=== PATIENT | female | born 1940 | race Caucasian/White ===

== ENCOUNTER 2019-08-22 00:33 | Inpatient (IN) | payer BC, MEDICARE ==
[2019-08-22] MEDS ORDERED: PANTOPRAZOLE 40 MG/10 ML VIAL IVP STA (01:08)
[2019-08-22 01:48] LABS: Basophils # (A) 0.1 k/uL (0-0.2); Basophils % (A) 1 %; Eosinophils % (A) 0 %; HCT 29.5 % (34.0-46.0); HGB 9.3 gm/dL (11.4-16.0); Hypochromasia Slight; Lymphocytes # (A) 1.2 k/uL (1.0-4.8); Lymphocytes % (A) 10 %; MCH 29.9 pg (25.0-35.0); MCHC 31.5 g/dL (31.0-37.0); Mean Platelet Volume 6.7; Monocytes # (A) 0.8 k/uL (0-1.0); Monocytes % (A) 6 %; Neutrophils # (A) 9.8 k/uL (1.3-7.7); Neutrophils % (A) 81 %; Platelet Count 325 k/uL (150-450); RDW 14.7 % (11.5-15.5)
[2019-08-22 01:56] LABS: ALT 20 U/L (9-52); AST 25 U/L (14-36); African American GFR (CKD) >90 (>60 ml/min/1.73 sqM); Albumin 3.4 g/dL (3.5-5.0); Alkaline Phosphatase 68 U/L (38-126); Anion Gap 10 mmol/L; Blood Urea Nitrogen 72 mg/dL (7-17); Calcium 8.8 mg/dL (8.4-10.2); Carbon Dioxide 20 mmol/L (22-30); Chloride 107 mmol/L (98-107); Glucose 136 mg/dL (74-99); Potassium 4.6 mmol/L (3.5-5.1); Sodium 137 mmol/L (137-145); Total Bilirubin 0.5 mg/dL (0.2-1.3); Total Protein 5.7 g/dL (6.3-8.2)
[2019-08-22 02:08] LABS: Lactic Acid, Venous 3.8 mmol/L (0.7-2.0)
[2019-08-22 02:09] LABS: INR 1.2 (<1.2); Prothrombin Time 12.6 sec (9.0-12.0)
[2019-08-22 02:14] LABS: Partial Thromboplastin Time 21.1 sec (22.0-30.0)
[2019-08-22] MEDS: SODIUM CHLORIDE 0.9% 500 ML 500 ML IV SCH ×4 (03:30→04:37)
--- NOTE | 2019-08-22 04:27 | ED ---
Nausea/Vomiting/Diarrhea HPI - General Chief complaint: Nausea/Vomiting/Diarrhea Stated complaint: Vomiting Time Seen by Provider: 08/22/19 00:46 Source: family Mode of arrival: wheelchair Limitations: physical limitation (Delirium versus dementia) - History of Present Illness Initial comments: This patient is a 73-year-old woman who presents to be evaluated for vomiting. Patient states the symptoms had come on in the evening. She describes having m ultiple episodes of coffee-ground emesis. The patient had gone to another hospital, where she was seen and then left AGAINST MEDICAL ADVICE. The patient here also states she is having some epigastric pain. Pain is burning and cramping at times sharp. Currently moderate. She has not noted worsening or relieving factors. History is limited as the patient is difficult to focus on the history and physical. MD complaint: nausea, vomiting, abdominal pain -: hour(s) Description of Vomiting: coffee grounds Associated Abdominal Pain: Yes Location: epigastric Radiation: none Severity: moderate Quality: cramping, other (Burning) Consistency: constant Improves with: none Worsens with: none - Related Data Home Medications Medication Instructions Recorded Confirmed DULoxetine HCL [Cymbalta] 60 mg PO DAILY 01/24/15 02/20/15 Omeprazole 20 mg PO BID 01/24/15 02/20/15 clonazePAM [Clonazepam] 1 mg PO BID 01/24/15 02/20/15 Acetaminophen Tab [Tylenol] 650 mg PO Q6H PRN 02/03/15 02/20/15 Ascorbic Acid [Vitamin C] 500 mg PO DAILY@1200 02/03/15 02/20/15 Aspirin 81 mg PO DAILY 02/03/15 02/20/15 Cholecalciferol [Vitamin D3 (25 2,000 unit PO DAILY@1200 02/03/15 02/20/15 Mcg = 1000 Iu)] Multivit-Min/FA/Lycopene/Lut 1 tab PO DAILY 02/03/15 02/20/15 [Centrum Silver Tablet] Selenium 100 mcg PO DAILY 02/03/15 02/20/15 Vitamin B Complex 1 tab PO DAILY 02/03/15 02/20/15 Cephalexin [Keflex] 500 mg PO Q12HR 02/20/15 02/20/15 Zocor 1 tab PO DAILY 02/20/15 02/20/15 Previous Rx's Medication Instructions Recorded Albuterol Nebulized [Ventolin 2.5 mg INHALATION RT-Q4H PRN #0 02/06/15 Nebulized] nebu Folic Acid 1 mg PO DAILY@1200 tab 02/06/15 Multivitamins, Thera [Multivitamin 1 each PO DAILY@1200 tab 02/06/15 (formulary)] Thiamine [Vitamin B-1] 100 mg PO DAILY@1200 tab 02/06/15 Allergies Allergy/AdvReac Type Severity Reaction Status Date / Time Iodinated Contrast Media Allergy Rash/Hives Verified 02/20/15 07:49 [Iodinated Contrast Media - IV Dye] Review of Systems ROS Statement: Those systems with pertinent positive or pertinent negative responses have been documented in the HPI. ROS Other: All systems not noted in ROS Statement are negative. Limitations: ROS unobtainable due to patients medical condition (Area versus dementia) Constitutional: Denies: fever Respiratory: Denies: cough, dyspnea Cardiovascular: Denies: chest pain, syncope Gastrointestinal: Reports: abdominal pain, nausea, vomiting, hematemesis (Coffee ground emesis). Denies: diarrhea, constipation, hematochezia Genitourinary: Denies: dysuria, hematuria Musculoskeletal: Denies: back pain Skin: Denies: rash Neurological: Denies: headache Past Medical History Past Medical History: Cancer, COPD, Fibromyalgia, GERD/Reflux, Hyperlipidemia, Osteoarthritis (OA) Additional Past Medical History / Comment(s): HX MELANOMA, IBS, DIVERTICULI, History of Any Multi-Drug Resistant Organisms: None Reported Past Surgical History: Appendectomy, Cholecystectomy, Hysterectomy, Orthopedic Surgery Additional Past Surgical History / Comment(s): MELANOMA REMOVED shoulder and left arm with lymph nodes removed. BREAST BX - benign. anterior approach total right hip replacement 02-03-15, right wrist surgery after fracture with pins Past Anesthesia/Blood Transfusion Reactions: Motion Sickness Past Psychological History: Anxiety Smoking Status: Never smoker Past Alcohol Use History: None Reported Past Drug Use History: None Reported - Past Family History Mother Family Medical History: Congestive Heart Failure (CHF) Father Family Medical History: Deep Vein Thrombosis (DVT), Myocardial Infarction ([place]) General Exam Limitations: no limitations General appearance: alert, in distress, other (Patient is having very frequent retching during the exam, not bringing up any emesis.) Head exam: Present: atraumatic, normocephalic Eye exam: Present: normal appearance. Absent: scleral icterus, conjunctival injection ENT exam: Present: mucous membranes dry, other (Mucosal pallor) Neck exam: Present: normal inspection, full ROM Respiratory exam: Present: normal lung sounds bilaterally. Absent: respiratory distress, wheezes, rales, rhonchi, stridor Cardiovascular Exam: Present: regular rate, normal rhythm, systolic murmur (Grade 2/6 systolic ejection murmur). Absent: diastolic murmur, rubs, gallop GI/Abdominal exam: Present: soft. Absent: distended, tenderness, guarding, rebound, rigid, mass Extremities exam: Present: normal inspection, normal capillary refill. Absent: pedal edema, calf tenderness Back exam: Present: normal inspection. Absent: CVA tenderness (R), CVA tenderness (L) Neurological exam: Present: alert Skin exam: Present: warm, dry, intact, normal color. Absent: rash Course Vital Signs 08/22/19 08/22/19 08/22/19 00:40 02:29 04:32 Temperature 97.6 F Pulse Rate 78 93 140 H Respiratory 20 18 18 Rate Blood Pressure 114/67 114/70 116/81 O2 Sat by Pulse 96 99 95 Oximetry 08/22/19 08/22/19 04:46 06:44 Temperature Pulse Rate 148 H 111 H Respiratory 18 18 Rate Blood Pressure 116/81 103/62 O2 Sat by Pulse 97 99 Oximetry - Reevaluation(s) Reevaluation #1: 08/22/19 07:15 Patient's condition after fluid shows that there continues to be a lactic acidos is though somewhat improved. Patient anemia mildly worsened. Patient be admitted for GI bleed. Case discussed with Dr. rico, for [facility] call. Discussed condition in depth and he will see the patient early. 08/22/19 07:32 Case is also discussed with Dr. Sharma who will see the patient, and with Dr. Carmichael, who felt that given a the circumstances of the case she probably would benefit from ICU management for the first day. Procedures - Restraint - Face to Face Restraint Occurrence 1 Patient's Immediate Situation: Endangers self safety Patient's Reaction to the Intervention: Anxious, Bizarre, Suspicious Patient's Medical & Behavioral Condition: Agitated Need to Continue or Terminate Restraint or Seclusion: Continue Face to Face Eval of Restraint Date: 08/22/19 Face to Face Eval of Restraint Time: 07:02 Medical Decision Making - Medical Decision Making Patient 79-year-old woman having multiple rounds of coffee-ground emesis, with multiple lab abnormalities, including lactic acidosis and anemia. The patient has expressed desire to leave AGAINST MEDICAL ADVICE. She is oriented, but she does not display understanding of the condition, and does not display understanding of the possible consequences of leaving, including worsening condition and . I did discuss the patient's care with her son, who initially stated that he felt that she could make her own decision regarding care, however when I explained that I felt that she should stay, the patient's son stated that he felt she should stay for further care. The patient's son did attempt to speak with her, she became angry and on the phone. - Lab Data Result diagrams: 08/22/19 06:42 08/22/19 01:24 Lab Results 08/22/19 08/22/19 08/22/19 Range/Units 01:24 01:24 01:24 WBC 12.0 H (3.8-10.6) k/uL RBC 3.10 L (3.80-5.40) m/uL Hgb 9.3 L (11.4-16.0) gm/dL Hct 29.5 L (34.0-46.0) % MCV 95.0 (80.0-100.0) fL MCH 29.9 (25.0-35.0) pg MCHC 31.5 (31.0-37.0) g/dL RDW 14.7 (11.5-15.5) % Plt Count 325 (150-450) k/uL Neutrophils % 81 % Lymphocytes % 10 % Monocytes % 6 % Eosinophils % 0 % Basophils % 1 % Neutrophils # 9.8 H (1.3-7.7) k/uL Lymphocytes # 1.2 (1.0-4.8) k/uL Monocytes # 0.8 (0-1.0) k/uL Eosinophils # 0.0 (0-0.7) k/uL Basophils # 0.1 (0-0.2) k/uL Hypochromasia Slight PT (9.0-12.0) sec INR (<1.2) APTT (22.0-30.0) sec Sodium 137 (137-145) mmol/L Potassium 4.6 (3.5-5.1) mmol/L Chloride 107 (98-107) mmol/L Carbon Dioxide 20 L (22-30) mmol/L Anion Gap 10 mmol/L BUN 72 H (7-17) mg/dL Creatinine 0.64 (0.52-1.04) mg/dL Est GFR (CKD-EPI)AfAm >90 (>60 ml/min/1.73 sqM) Est GFR (CKD-EPI)NonAf 86 (>60 ml/min/1.73 sqM) Glucose 136 H (74-99) mg/dL Lactic Ac Sepsis Rflx Plasma Lactic Acid Devon 3.8 H* (0.7-2.0) mmol/L Calcium 8.8 (8.4-10.2) mg/dL Total Bilirubin 0.5 (0.2-1.3) mg/dL AST 25 (14-36) U/L ALT 20 (9-52) U/L Alkaline Phosphatase 68 (38-126) U/L Ammonia 11 (<30) umol/L Troponin I (0.000-0.034) ng/mL Total Protein 5.7 L (6.3-8.2) g/dL Albumin 3.4 L (3.5-5.0) g/dL Lipase 55 (23-300) U/L Urine Color Urine Appearance (Clear) Urine pH (5.0-8.0) Ur Specific [place] (1.001-1.035) Urine Protein (Negative) Urine Glucose (UA) (Negative) Urine Ketones (Negative) Urine Blood (Negative) Urine Nitrite (Negative) Urine Bilirubin (Negative) Urine Urobilinogen (<2.0) mg/dL Ur Leukocyte Esterase (Negative) Gastric Occult Blood (Negative) Blood Type Blood Type Recheck Bld Type Recheck Status Antibody Screen Spec Expiration Date 08/22/19 08/22/19 08/22/19 Range/Units 01:24 01:24 01:24 WBC (3.8-10.6) k/uL RBC (3.80-5.40) m/uL Hgb (11.4-16.0) gm/dL Hct (34.0-46.0) % MCV (80.0-100.0) fL MCH (25.0-35.0) pg MCHC (31.0-37.0) g/dL RDW (11.5-15.5) % Plt Count (150-450) k/uL Neutrophils % % Lymphocytes % % Monocytes % % Eosinophils % % Basophils % % Neutrophils # (1.3-7.7) k/uL Lymphocytes # (1.0-4.8) k/uL Monocytes # (0-1.0) k/uL Eosinophils # (0-0.7) k/uL Basophils # (0-0.2) k/uL Hypochromasia PT 12.6 H (9.0-12.0) sec INR 1.2 H (<1.2) APTT 21.1 L (22.0-30.0) sec Sodium (137-145) mmol/L Potassium (3.5-5.1) mmol/L Chloride (98-107) mmol/L Carbon Dioxide (22-30) mmol/L Anion Gap mmol/L BUN (7-17) mg/dL Creatinine (0.52-1.04) mg/dL Est GFR (CKD-EPI)AfAm (>60 ml/min/1.73 sqM) Est GFR (CKD-EPI)NonAf (>60 ml/min/1.73 sqM) Glucose (74-99) mg/dL Lactic Ac Sepsis Rflx Plasma Lactic Acid Devon (0.7-2.0) mmol/L Calcium (8.4-10.2) mg/dL Total Bilirubin (0.2-1.3) mg/dL AST (14-36) U/L ALT (9-52) U/L Alkaline Phosphatase (38-126) U/L Ammonia (<30) umol/L Troponin I 0.029 (0.000-0.034) ng/mL Total Protein (6.3-8.2) g/dL Albumin (3.5-5.0) g/dL Lipase (23-300) U/L Urine Color Urine Appearance (Clear) Urine pH (5.0-8.0) Ur Specific [place] (1.001-1.035) Urine Protein (Negative) Urine Glucose (UA) (Negative) Urine Ketones (Negative) Urine Blood (Negative) Urine Nitrite (Negative) Urine Bilirubin (Negative) Urine Urobilinogen (<2.0) mg/dL Ur Leukocyte Esterase (Negative) Gastric Occult Blood (Negative) Blood Type A Positive Blood Type Recheck A Pos Bld Type Recheck Status No Antibody Screen NEGATIVE Spec Expiration Date 08/25/2019232308/22/19 08/22/19 08/22/19 Range/Units 01:26 02:08 04:24 WBC (3.8-10.6) k/uL RBC (3.80-5.40) m/uL Hgb (11.4-16.0) gm/dL Hct (34.0-46.0) % MCV (80.0-100.0) fL MCH (25.0-35.0) pg MCHC (31.0-37.0) g/dL RDW (11.5-15.5) % Plt Count (150-450) k/uL Neutrophils % % Lymphocytes % % Monocytes % % Eosinophils % % Basophils % % Neutrophils # (1.3-7.7) k/uL Lymphocytes # (1.0-4.8) k/uL Monocytes # (0-1.0) k/uL Eosinophils # (0-0.7) k/uL Basophils # (0-0.2) k/uL Hypochromasia PT (9.0-12.0) sec INR (<1.2) APTT (22.0-30.0) sec Sodium (137-145) mmol/L Potassium (3.5-5.1) mmol/L Chloride (98-107) mmol/L Carbon Dioxide (22-30) mmol/L Anion Gap mmol/L BUN (7-17) mg/dL Creatinine (0.52-1.04) mg/dL Est GFR (CKD-EPI)AfAm (>60 ml/min/1.73 sqM) Est GFR (CKD-EPI)NonAf (>60 ml/min/1.73 sqM) Glucose (74-99) mg/dL Lactic Ac Sepsis Rflx Y Plasma Lactic Acid Devon (0.7-2.0) mmol/L Calcium (8.4-10.2) mg/dL Total Bilirubin (0.2-1.3) mg/dL AST (14-36) U/L ALT (9-52) U/L Alkaline Phosphatase (38-126) U/L Ammonia (<30) umol/L Troponin I (0.000-0.034) ng/mL Total Protein (6.3-8.2) g/dL Albumin (3.5-5.0) g/dL Lipase (23-300) U/L Urine Color Yellow Urine Appearance Clear (Clear) Urine pH 5.5 (5.0-8.0) Ur Specific [place] 1.024 (1.001-1.035) Urine Protein Negative (Negative) Urine Glucose (UA) Negative (Negative) Urine Ketones 1+ H (Negative) Urine Blood Negative (Negative) Urine Nitrite Negative (Negative) Urine Bilirubin Negative (Negative) Urine Urobilinogen <2.0 (<2.0) mg/dL Ur Leukocyte Esterase Negative (Negative) Gastric Occult Blood Positive (Negative) Blood Type Blood Type Recheck Bld Type Recheck Status Antibody Screen Spec Expiration Date 08/22/19 08/22/19 Range/Units 06:42 06:42 WBC 12.4 H (3.8-10.6) k/uL RBC 2.59 L (3.80-5.40) m/uL Hgb 8.0 L (11.4-16.0) gm/dL Hct 24.0 L (34.0-46.0) % MCV 92.6 (80.0-100.0) fL MCH 30.7 (25.0-35.0) pg MCHC 33.2 (31.0-37.0) g/dL RDW 14.8 (11.5-15.5) % Plt Count 319 (150-450) k/uL Neutrophils % % Lymphocytes % % Monocytes % % Eosinophils % % Basophils % % Neutrophils # (1.3-7.7) k/uL Lymphocytes # (1.0-4.8) k/uL Monocytes # (0-1.0) k/uL Eosinophils # (0-0.7) k/uL Basophils # (0-0.2) k/uL Hypochromasia PT (9.0-12.0) sec INR (<1.2) APTT (22.0-30.0) sec Sodium (137-145) mmol/L Potassium (3.5-5.1) mmol/L Chloride (98-107) mmol/L Carbon Dioxide (22-30) mmol/L Anion Gap mmol/L BUN (7-17) mg/dL Creatinine (0.52-1.04) mg/dL Est GFR (CKD-EPI)AfAm (>60 ml/min/1.73 sqM) Est GFR (CKD-EPI)NonAf (>60 ml/min/1.73 sqM) Glucose (74-99) mg/dL Lactic Ac Sepsis Rflx Plasma Lactic Acid Devon 3.3 H* (0.7-2.0) mmol/L Calcium (8.4-10.2) mg/dL Total Bilirubin (0.2-1.3) mg/dL AST (14-36) U/L ALT (9-52) U/L Alkaline Phosphatase (38-126) U/L Ammonia (<30) umol/L Troponin I (0.000-0.034) ng/mL Total Protein (6.3-8.2) g/dL Albumin (3.5-5.0) g/dL Lipase (23-300) U/L Urine Color Urine Appearance (Clear) Urine pH (5.0-8.0) Ur Specific [place] (1.001-1.035) Urine Protein (Negative) Urine Glucose (UA) (Negative) Urine Ketones (Negative) Urine Blood (Negative) Urine Nitrite (Negative) Urine Bilirubin (Negative) Urine Urobilinogen (<2.0) mg/dL Ur Leukocyte Esterase (Negative) Gastric Occult Blood (Negative) Blood Type Blood Type Recheck Bld Type Recheck Status Antibody Screen Spec Expiration Date Critical Care Time Critical Care Time: Yes (40 minutes) Disposition Clinical Impression: GI bleeding, Anemia, Lactic acidosis Disposition: ADMITTED IP TO THIS [facility] Condition: Serious Is patient prescribed a controlled substance at d/c from ED?: No Referrals: None,Stated [Primary Care Provider] - 1-2 days
[2019-08-22 04:32] LABS: Appearance,Urine Clear (Clear); Bilirubin,Urine Negative (Negative); Blood,Urine Negative (Negative); Color,Urine Yellow; Glucose,Urine (UA) Negative (Negative); Ketones,Urine 1+ (Negative); Leukocyte Esterase,Urine Negative (Negative); Nitrite,Urine Negative (Negative); PH, Urine 5.5 (5.0-8.0); Protein,Urine Negative (Negative); Specific Gravity,Urine 1.024 (1.001-1.035); Urobilinogen,Urine <2.0 mg/dL (<2.0)
[2019-08-22] MEDS ORDERED: LORazepam 2 MG/ML INJ IV STA ×3 (04:47→07:17)
[2019-08-22] MEDS ORDERED: HALOPERIDOL LACTATE 5 MG/ML 1 ML VIAL IM STA (06:14)
[2019-08-22 06:49] LABS: MCH 30.7 pg (25.0-35.0); MCHC 33.2 g/dL (31.0-37.0); MCV 92.6 fL (80.0-100.0); Mean Platelet Volume 6.3; Platelet Count 319 k/uL (150-450); RBC 2.59 m/uL (3.80-5.40); RDW 14.8 % (11.5-15.5); WBC 12.4 k/uL (3.8-10.6)
[2019-08-22] MEDS ORDERED: NALOXONE 0.4 MG/ML 1 ML VIAL IV PRN (07:22)
[2019-08-22] MEDS: SODIUM CHLORIDE 0.9% 1,000 ML IV SCH ×3 (08:00→22:29)
[2019-08-22 09:04] LABS: Glucose,Whole Blood 109 mg/dL (75-99)
[2019-08-22] MEDS ORDERED: HYDROmorphone 1 MG/ML 1 ML SYRINGE IVP PRN ×2 (09:13→09:14)
[2019-08-22] MEDS ORDERED: SODIUM CHLORIDE 0.9% 1,000 ML IV ONE (09:17)
[2019-08-22] MEDS: HALOPERIDOL LACTATE 5 MG/ML 1 ML VIAL IM PRN ×2 (09:20→19:40)
[2019-08-22] MEDS ORDERED: HYDROmorphone 1 MG/ML 1 ML SYRINGE ONE (09:21)
--- NOTE | 2019-08-22 09:43 | XR ---
EXAMINATION TYPE: XR chest 1V portable DATE OF EXAM: 08/22/2019 COMPARISON: 02/04/2015 HISTORY: Shortness of breath TECHNIQUE: Single frontal view of the chest is obtained. FINDINGS: And new very mild cephalization is seen. The previously seen nodular opacities in the righ t lower lung are somewhat obscured by thee pulmonary vessels en face. The smaller nodule at the right lung base appears similar to the prior chest x-ray 2014. There is shifting of the mediastinum to the right secondary to patient positioning. Central vascular engorgement is noted. No sizable pneumothor ax. Diffuse osseous demineralization. Postsurgical changes of the left breast. IMPRESSION: New mild cephalization. Consider cardiogenic or noncardiogenic fluid overload.
[2019-08-22] MEDS: GABAPENTIN 100 MG CAP PO SCH ×2 (10:03→20:56)
[2019-08-22] MEDS: PANTOPRAZOLE 40 MG/10 ML VIAL IV SCH (10:06)
--- NOTE | 2019-08-22 10:43 | CT ---
EXAMINATION TYPE: CT brain wo con DATE OF EXAM: 08/22/2019 COMPARISON: Prior CT 01/18/2012 HISTORY: AMS CT DLP: 1129.4 mGycm Automated exposure control for dose reduction was used. CT brain using departmental protocol performe d FINDINGS: Cortical atrophy is present. There is no hemorrhage or hydrocephalus. White matter low-attenuation is again seen. No hemorrhage or hydrocephalus. Orbits show symmetric appearance. Calvarium is intact. P aranasal sinuses and mastoid air cells as visualized are normal. IMPRESSION: NO ACUTE ABNORMALITY. AGE-RELATED CHANGES OF ATROPHY AND PROBABLE CHRONIC SMALL VESSEL ISCHEMIA.
[2019-08-22 10:53] LABS: Ammonia <9 umol/L (<30)
--- NOTE | 2019-08-22 10:53 | P.CNPUL ---
History of Present Illness Consult date: 08/22/19 Requesting physician: Alex E Perri Reason for consult: other (Critical care management) Chief complaint: Coffee-ground emesis History of present illness: This is a 79-year-old female patient with a history of fibromyalgia, previous tobacco dependence, chronic obstructive pulmonary disease, gastroesophageal reflux disease, hyperlipidemia, degenerative joint disease, melanoma, anxiety, traumatic brain injury. Yesterday she developed an episode of coffee-ground emesis and presented to [facility] emergency room. Prior to being worked up she left AGAINST MEDICAL ADVICE. Later in the day her family convinced her to come here to the emergency room. She had 2 additional episodes of coffee-ground emesis. She was also having some delirium and again threatening to leave AGAINST MEDICAL ADVICE. She was eventually admitted to the intensive care unit. She was acting psychotic according to the staff. She has received 2 mg of Haldol and 1 mg of Dilaudid. Previous Ativan was given as well. She is currently resting comfortably in bed. Her son is at the bedside who supplies most of the information. She does live at home alone. He states some of her bizarre behavior is normal for her. Her chest x-ray reveals some mild cephalization with fluid volume overload. White count 12.4. Hemoglobin 8.0. Creatinine 0.64. Initial lactic acid 3.8, currently 3.3. Stool for occult blood is positive. Currently on 0.9 normal saline at 100 ML's per hour. Protonix 40 mg IV push daily. GI consult pending. Review of Systems ROS unobtainable: due to mental status Past Medical History Past Medical History: Cancer, COPD, Fibromyalgia, GERD/Reflux, Hyperlipidemia, Osteoarthritis (OA) Additional Past Medical History / Comment(s): HX MELANOMA, IBS, DIVERTICULI, History of Any Multi-Drug Resistant Organisms: None Reported Past Surgical History: Appendectomy, Cholecystectomy, Hysterectomy, Orthopedic Surgery Additional Past Surgical History / Comment(s): MELANOMA REMOVED shoulder and left arm with lymph nodes removed. BREAST BX - benign. anterior approach total right hip replacement 02-03-15, right wrist surgery after fracture with pins Past Anesthesia/Blood Transfusion Reactions: Motion Sickness Past Psychological History: Anxiety Smoking Status: Never smoker Past Alcohol Use History: None Reported Past Drug Use History: None Reported - Past Family History Mother Family Medical History: Congestive Heart Failure (CHF) Father Family Medical History: Deep Vein Thrombosis (DVT), Myocardial Infarction ([place]) Medications and Allergies Home Medications Medication Instructions Recorded Confirmed Type DULoxetine HCL [Cymbalta] 60 mg PO BID 01/24/15 08/22/19 History Albuterol Nebulized [Ventolin 2.5 mg INHALATION RT-Q4H PRN #0 02/06/15 08/22/19 Rx Nebulized] nebu Acetaminophen [Tylenol Arthritis] 650 mg PO DAILY 08/22/19 08/22/19 History Aspirin 325 mg PO DAILY 08/22/19 08/22/19 History Cholecalciferol (Vitamin D3) 2,000 unit PO DAILY 08/22/19 08/22/19 History [Vitamin D3] Cod Liver Oil 1 cap PO DAILY 08/22/19 08/22/19 History Ibuprofen [Advil] 400 mg PO BID 08/22/19 08/22/19 History Multivit-Min/FA/Lycopen/Lutein 1 tab PO DAILY 08/22/19 08/22/19 History [Centrum Silver Tablet] Simvastatin [Zocor] 40 mg PO DAILY 08/22/19 08/22/19 History Zinc 50 mg PO DAILY 08/22/19 08/22/19 History diphenhydrAMINE HCL [Benadryl] 25 mg PO DAILY PRN 08/22/19 08/22/19 History Allergies Allergy/AdvReac Type Severity Reaction Status Date / Time Iodinated Contrast Media Allergy Rash/Hives Verified 02/20/15 07:49 [Iodinated Contrast Media - IV Dye] Physical Exam Vitals: Vital Signs Temp Pulse Resp BP Pulse Ox 08/22/19 08:00 130 H 18 127/68 95 08/22/19 06:44 111 H 18 103/62 99 08/22/19 04:46 148 H 18 116/81 97 08/22/19 04:32 140 H 18 116/81 95 08/22/19 02:29 93 18 114/70 99 08/22/19 00:40 97.6 F 78 20 114/67 96 Intake and Output 08/21/19 08/22/19 08/22/19 22:59 06:59 14:59 Other: Weight 81.647 kg GENERAL EXAM: 79-year-old female patient, sedated, comfortable in no apparent distress. On room air. HEAD: Normocephalic. EYES: Normal reaction of pupils, equal size. NOSE: Clear with pink turbinates. THROAT: No erythema or exudates. NECK: No masses, no JVD. CHEST: No chest wall deformity. LUNGS: Equal air entry with no crackles, wheeze, rhonchi or dullness. CVS: S1 and S2 normal with no audible murmur, regular rhythm. ABDOMEN: No hepatosplenomegaly, normal bowel sounds, no guarding or rigidity. SPINE: No scoliosis or deformity SKIN: No rashes CENTRAL NERVOUS SYSTEM: No focal deficits, tone is normal in all 4 extremities. EXTREMITIES: There is no peripheral edema. No clubbing, no cyanosis. Peripheral pulses are intact. Results - Laboratory Findings CBC and BMP: 08/22/19 06:42 08/22/19 01:24 PT/INR, D-dimer PT 12.6 sec (9.0-12.0) H 08/22/19 01:24 INR 1.2 (<1.2) H 08/22/19 01:24 Abnormal lab findings: Abnormal Labs 08/22/19 08/22/19 08/22/19 01:24 01:24 01:24 WBC 12.0 H RBC 3.10 L Hgb 9.3 L Hct 29.5 L Neutrophils # 9.8 H PT INR APTT Carbon Dioxide 20 L BUN 72 H Glucose 136 H POC Glucose (mg/dL) Plasma Lactic Acid Devon 3.8 H* Total Protein 5.7 L Albumin 3.4 L Urine Ketones 08/22/19 08/22/19 08/22/19 01:24 04:24 06:42 WBC 12.4 H RBC 2.59 L Hgb 8.0 L Hct 24.0 L Neutrophils # PT 12.6 H INR 1.2 H APTT 21.1 L Carbon Dioxide BUN Glucose POC Glucose (mg/dL) Plasma Lactic Acid Devon Total Protein Albumin Urine Ketones 1+ H 08/22/19 08/22/19 06:42 08:45 WBC RBC Hgb Hct Neutrophils # PT INR APTT Carbon Dioxide BUN Glucose POC Glucose (mg/dL) 109 H Plasma Lactic Acid Devon 3.3 H* Total Protein Albumin Urine Ketones - Diagnostic Findings Chest x-ray: image reviewed Assessment and Plan Assessment: Impression: #1 Anemia secondary to gastrointestinal bleeding with coffee-ground emesis and stool positive for occult blood. Son states patient takes 10-12 aspirin a day for fibromyalgia pain. #2 Altered mental status of unclear etiology. Computed tomography scan of the brain pending. #3 History of traumatic brain injury as a child. #4 Fibromyalgia. #5 Chronic obstructive pulmonary disease currently inactive and stable. #6 Previous history of chronic tobacco dependence. #7 Hyperlipidemia. #8 Degenerative joint disease. #9 Irritable bowel syndrome. #10 History of melanoma with subsequent excision. Plan: The patient was seen and evaluated by Dr. Carmichael. Chest x-ray and labs reviewed. We did go ahead and order CAT scan of the brain without contrast. Urine cultures pending. Place a Badillo catheter. Received ceftriaxone. Obtain an ammonia level. Discontinue Dilaudid. Continue Haldol. Add gabapentin. Co ntinue fluids at 0.9 normal saline at 100 ML's per hour. GI consult pending. We'll continue to follow and make further recommendations based on her clinical status. Sitter is at the bedside. I, the cosigning physician, performed a history & physical examination of the patient. Lungs sounds are clear. Maintaining good O2 saturations in the 90s on room air. I discussed the assessment and plan of care with my nurse practitioner, Christine Patterson. I attest to the above consultation as dictated by her. Time with Patient: Greater than 30
[2019-08-22 13:24] VITALS: BMI 29.7
[2019-08-22 14:39] LABS: HGB 7.3 gm/dL (11.4-16.0); Hypochromasia Slight; MCH 30.1 pg (25.0-35.0); MCHC 31.7 g/dL (31.0-37.0); MCV 95.1 fL (80.0-100.0); Mean Platelet Volume 6.5; Platelet Count 283 k/uL (150-450); RBC 2.42 m/uL (3.80-5.40); RDW 15.2 % (11.5-15.5); WBC 13.1 k/uL (3.8-10.6)
--- NOTE | 2019-08-22 18:54 | CONS ---
CONSULTATION DATE OF DICTATION: 08/22/2019 REASON FOR CONSULTATION: Acute upper GI bleed. HISTORY OF PRESENT ILLNESS: The patient is a 79-year-old pleasant white female who was admitted to the hospital when she presented with acute upper GI bleed. Apparently at home she had two episodes of coffee-ground emesis and came into the emergency room. She had at least 3 or 4 further episodes of coffee-ground emesis. She was admitted to the intensive care unit. Since being in the ICU, she has been very agitated and combative and is at present in a four-point restraint. The patient could not answer most of the questions, as she seems to be very agitated at the present time. As per the nursing staff, since she came into the intensive care unit she did not have any further episodes of coffee-ground emesis. She had two brown stools this morning. She was given initially Ativan in the ER, which made her more combative, and subsequently she received 2 mg of Haldol and 1 mg of Dilaudid. As per the family, she does have some bizarre behavior during hospitalizations. Her initial hemoglobin was 9.4 g/dL. Subsequently it dropped to 8 g/dL. She denies any abdominal pain. Reports no prior history of peptic ulcer disease. She has been taking Motrin regularly for the last few months. PAST MEDICAL HISTORY: Her past medical history is significant for: 1. COPD. 2. Fibromyalgia. 3. Gastroesophageal reflux disease. 4. Hypertension. 5. Hyperlipidemia. 6. Osteoarthritis. 7. History of melanoma in the past. PAST SURGICAL HISTORY: 1. Appendectomy. 2. Cholecystectomy. 3. Hysterectomy. 4. Melanoma removal. MEDICATIONS: Medications at home include: 1. Cymbalta. 2. Ventolin. 3. Tylenol. 4. Aspirin. 5. Vitamin D3. 6. Advil. 7. Zocor. 8. Zinc. 9. Benadryl. ALLERGIES: IV DYE. SOCIAL HISTORY: No smoking. No alcohol use. FAMILY HISTORY: Mother with congestive heart failure. Father with DVT and OK. REVIEW OF SYSTEMS: Review of systems could not be obtained, as patient is quite combative and not responding to questions appropriately. PHYSICAL EXAMINATION: She appears comfortable. No apparent distress, other than being combative. Vital signs show a blood pressure of 122/58, pulse rate 132. Afebrile. HEENT examination unremarkable. Conjunctivae pink. Sclerae anicteric. Oral cavity no lesions. NECK: No JVD or lymph node enlargement. CHEST: Clear to auscultation. HEART: Regular rate and rhythm. ABDOMEN: Soft. It was non-tender, non-distended. Bowel sounds are positive. No organomegaly. EXTREMITIES: No pedal edema. SKIN: No rashes. NEUROLOGIC: She is alert and oriented x3. No focal deficits, except she is very combative. LABS: Her initial hemoglobin was 9.4 and it subsequently dropped to 8.0 g/dL. WBC 12.4. Platelets are normal. INR is 1.2. BUN is 72 and creatinine is 0.64. Stool occult blood was positive. IMPRESSION: 1. This is a patient who presented to the hospital with a couple of episodes of coffee- ground emesis and while in the emergency room had 2 other episodes of coffee-ground emesis. Her initial hemoglobin was 9.4, dropped to 8.0 g/dL. Since being in the hospital she had no further episodes of bleeding. There is recent NSAID use. Most likely we are dealing with an upper GI source of bleeding, but patient is hemodynamically stable. 2. Agitation/combative behavior, at present in a four-point restraint. She is at present receiving Ativan and Haldol. 3. History of gastroesophageal reflux disease. 4. History of fibromyalgia. RECOMMENDATIONS: 1. Continue Protonix 40 mg q.12 hours. 2. Will start her on a clear liquid diet. 3. Will proceed with an upper endoscopy tomorrow once consent can be obtained from the family. 4. Repeat CBC every 12 hours and will transfuse if needed, especially if her hemoglobin is less than 7. Thank you for this consultation. Will follow the patient closely during her hospital stay. MMODL / IJN: [id number] /
[2019-08-22 20:21] LABS: HCT 20.8 % (34.0-46.0); Hypochromasia Slight; MCH 30.4 pg (25.0-35.0); MCHC 32.4 g/dL (31.0-37.0); MCV 93.9 fL (80.0-100.0); Mean Platelet Volume 6.5; Platelet Count 263 k/uL (150-450); RBC 2.21 m/uL (3.80-5.40); RDW 15.4 % (11.5-15.5); WBC 10.5 k/uL (3.8-10.6)
[2019-08-22 20:24] LABS: HGB 6.7 gm/dL (11.4-16.0)
--- NOTE | 2019-08-22 21:53 | P.HPIM ---
History of Present Illness H&P Date: 08/22/19 Chief Complaint: Coffee-ground emesis Patient is a 79-year-old female with a known history of COPD, fibromyalgia, history of diverticulosis, hyperlipidemia, osteoarthritis and other multiple medical problems came to ER with complaints of coffee-ground emesis. Patient initially presented to [facility] and was being worked up for acute GI bleed. Patient left AGAINST MEDICAL ADVICE and later in the day family convinced her come to ER for evaluation. Patient had 2 additional coffee-ground emesis after that. Patient was confused and delirious. Currently being mo nitored in the MICU. Patient decided dose of Haldol and Dilaudid for pain. Patient cannot provide any history at this time. No complaints of chest pain or shortness of breath. Hemoglobin level was 9.3 on admission. Patient was also found to have lactic acidosis at 3.8 on admission. FOBT positive. Patient has been taking aspirin and Motrin twice daily due to pain from fibromyalgia. Chest x-ray showed new mild cephalization. Consider cardiogenic or noncardiogenic fluid load CT head showed no acute intracranial process. He is related small vessel chronic ischemic changes noted. Review of Systems Complete review of systems could not be obtained from the patient. Except as per HPI Past Medical History Past Medical History: Cancer, COPD, Fibromyalgia, GERD/Reflux, Hyperlipidemia, Osteoarthritis (OA) Additional Past Medical History / Comment(s): HX MELANOMA, IBS, DIVERTICULI, History of Any Multi-Drug Resistant Organisms: None Reported Past Surgical History: Appendectomy, Cholecystectomy, Hysterectomy, Orthopedic Surgery Additional Past Surgical History / Comment(s): MELANOMA REMOVED shoulder and left arm with lymph nodes removed. BREAST BX - benign. anterior approach total right hip replacement 02-03-15, right wrist surgery after fracture with pins Past Anesthesia/Blood Transfusion Reactions: Motion Sickness Past Psychological History: Anxiety Smoking Status: Never smoker Past Alcohol Use History: None Reported Past Drug Use History: None Reported - Past Family History Mother Family Medical History: Congestive Heart Failure (CHF) Father Family Medical History: Deep Vein Thrombosis (DVT), Myocardial Infarction (MN) Medications and Allergies Home Medications Medication Instructions Recorded Confirmed Type DULoxetine HCL [Cymbalta] 60 mg PO BID 01/24/15 08/22/19 History Albuterol Nebulized [Ventolin 2.5 mg INHALATION RT-Q4H PRN #0 02/06/15 08/22/19 Rx Nebulized] nebu Acetaminophen [Tylenol Arthritis] 650 mg PO DAILY 08/22/19 08/22/19 History Aspirin 325 mg PO DAILY 08/22/19 08/22/19 History Cholecalciferol (Vitamin D3) 2,000 unit PO DAILY 08/22/19 08/22/19 History [Vitamin D3] Cod Liver Oil 1 cap PO DAILY 08/22/19 08/22/19 History Ibuprofen [Advil] 400 mg PO BID 08/22/19 08/22/19 History Multivit-Min/FA/Lycopen/Lutein 1 tab PO DAILY 08/22/19 08/22/19 History [Centrum Silver Tablet] Simvastatin [Zocor] 40 mg PO DAILY 08/22/19 08/22/19 History Zinc 50 mg PO DAILY 08/22/19 08/22/19 History diphenhydrAMINE HCL [Benadryl] 25 mg PO DAILY PRN 08/22/19 08/22/19 History Allergies Allergy/AdvReac Type Severity Reaction Status Date / Time Iodinated Contrast Media Allergy Rash/Hives Verified 02/20/15 07:49 [Iodinated Contrast Media - IV Dye] Physical Exam Vitals: Vital Signs Temp Pulse Resp BP Pulse Ox 08/22/19 08:36 98.6 F 16 96 08/22/19 08:00 130 H 18 127/68 95 08/22/19 06:44 111 H 18 103/62 99 08/22/19 04:46 148 H 18 116/81 97 08/22/19 04:32 140 H 18 116/81 95 08/22/19 02:29 93 18 114/70 99 08/22/19 00:40 97.6 F 78 20 114/67 96 Intake and Output 08/21/19 08/22/19 08/22/19 22:59 06:59 14:59 Other: Weight 81.647 kg PHYSICAL EXAMINATION: Patient is lying in the bed a in acute distress and delirious and trying to get her to the bed.. HEENT: Normocephalic. Neck is supple. Pupils reactive. Nostrils clear. Oral cavity is moist. Ears reveal no drainage. Neck reveals no JVD, carotid bruits, or thyromegaly. CHEST EXAMINATION: Trachea is central. Symmetrical expansion. Minimal basilar c rackles. Lung olea clear to auscultation and percussion. CARDIAC: Normal S1, S2 with no gallops. No murmurs ABDOMEN: Soft. Bowel sounds normal. No organomegaly. No abdominal bruits. Extremities: reveal no edema. No clubbing or cyanosis Neurologically awake, alert, oriented with well-coordinated movements. No focal deficits noted Skin: No rash or skin lesions. Psychiatric: Coperative. Nonsuicidal Musculoskeletal: No joint swelling or deformity. Normal range of motion. Results CBC & Chem 7: 08/22/19 19:58 08/22/19 01:24 Labs: Abnormal Lab Results - Last 24 Hours (Table) 08/22/19 08/22/19 08/22/19 Range/Units 01:24 01:24 01:24 WBC 12.0 H (3.8-10.6) k/uL RBC 3.10 L (3.80-5.40) m/uL Hgb 9.3 L (11.4-16.0) gm/dL Hct 29.5 L (34.0-46.0) % Neutrophils # 9.8 H (1.3-7.7) k/uL PT (9.0-12.0) sec INR (<1.2) APTT (22.0-30.0) sec Carbon Dioxide 20 L (22-30) mmol/L BUN 72 H (7-17) mg/dL Glucose 136 H (74-99) mg/dL POC Glucose (mg/dL) (75-99) mg/dL Plasma Lactic Acid Devon 3.8 H* (0.7-2.0) mmol/L Total Protein 5.7 L (6.3-8.2) g/dL Albumin 3.4 L (3.5-5.0) g/dL Urine Ketones (Negative) 08/22/19 08/22/19 08/22/19 Range/Units 01:24 04:24 06:42 WBC 12.4 H (3.8-10.6) k/uL RBC 2.59 L (3.80-5.40) m/uL Hgb 8.0 L (11.4-16.0) gm/dL Hct 24.0 L (34.0-46.0) % Neutrophils # (1.3-7.7) k/uL PT 12.6 H (9.0-12.0) sec INR 1.2 H (<1.2) APTT 21.1 L (22.0-30.0) sec Carbon Dioxide (22-30) mmol/L BUN (7-17) mg/dL Glucose (74-99) mg/dL POC Glucose (mg/dL) (75-99) mg/dL Plasma Lactic Acid Devon (0.7-2.0) mmol/L Total Protein (6.3-8.2) g/dL Albumin (3.5-5.0) g/dL Urine Ketones 1+ H (Negative) 08/22/19 08/22/19 08/22/19 Range/Units 06:42 08:45 10:07 WBC (3.8-10.6) k/uL RBC (3.80-5.40) m/uL Hgb (11.4-16.0) gm/dL Hct (34.0-46.0) % Neutrophils # (1.3-7.7) k/uL PT (9.0-12.0) sec INR (<1.2) APTT (22.0-30.0) sec Carbon Dioxide (22-30) mmol/L BUN (7-17) mg/dL Glucose (74-99) mg/dL POC Glucose (mg/dL) 109 H (75-99) mg/dL Plasma Lactic Acid Devon 3.3 H* 4.0 H* (0.7-2.0) mmol/L Total Protein (6.3-8.2) g/dL Albumin (3.5-5.0) g/dL Urine Ketones (Negative) Thrombosis Risk Factor Assmnt - DVT/VTE Prophylaxis DVT/VTE Prophylaxis: Mechanical Prophylaxis ordered Assessment and Plan Assessment: Coffee-ground emesis secondary to acute GI bleed. Likely upper GI. Patient does take NSAID's for pain at home Acute blood loss anemia secondary to GI bleed Altered mental status likely due to delirium. CT head negative. Lactic acidosis secondary to tissue hypoperfusion GERD Fibromyalgia COPD stable at this time History of melanoma IBS History of diverticulosis Anxiety DVT prophylaxis with SCDs Plan: Patient will be continued on IV hydration monitor for fluid overload. Oxygen therapy as needed. Monitor H&H. Continue with Protonix 40 mg IV daily. And with the pain management and monitor closely. Patient is currently in MICU. Critical care team on board. Gastroenterology was consulted. Continue with Haldol when necessary. Pain management. Further recommendations based on the clinical course. Time with Patient: Greater than 30
[2019-08-23] MEDS: HALOPERIDOL LACTATE 5 MG/ML 1 ML VIAL IM PRN (02:24)
[2019-08-23 06:44] LABS: Basophils % (A) 1 %; Eosinophils % (A) 0 %; HCT 29.5 % (34.0-46.0); Lymphocytes % (A) 10 %; MCH 30.7 pg (25.0-35.0); MCHC 33.3 g/dL (31.0-37.0); MCV 91.9 fL (80.0-100.0); Mean Platelet Volume 6.2; Monocytes # (A) 0.6 k/uL (0-1.0); Monocytes % (A) 6 %; Neutrophils # (A) 7.7 k/uL (1.3-7.7); Neutrophils % (A) 81 %; Platelet Count 228 k/uL (150-450); RBC 3.21 m/uL (3.80-5.40); RDW 15.6 % (11.5-15.5); WBC 9.6 k/uL (3.8-10.6)
[2019-08-23 06:45] LABS: HGB 9.8 gm/dL (11.4-16.0)
[2019-08-23 06:53] LABS: African American GFR (CKD) >90 (>60 ml/min/1.73 sqM); Anion Gap 5 mmol/L; Blood Urea Nitrogen 41 mg/dL (7-17); Calcium 8.1 mg/dL (8.4-10.2); Carbon Dioxide 22 mmol/L (22-30); Chloride 116 mmol/L (98-107); Glucose 99 mg/dL (74-99); Potassium 3.3 mmol/L (3.5-5.1); Sodium 143 mmol/L (137-145)
[2019-08-23] MEDS ORDERED: Potassium Replacement Protocol 1 EACH MISC MISCELLANE PRN (07:34)
[2019-08-23] MEDS: GABAPENTIN 100 MG CAP PO SCH ×2 (07:57→22:06)
[2019-08-23] MEDS: PANTOPRAZOLE 40 MG/10 ML VIAL IV SCH (07:57)
[2019-08-23] MEDS: POTASSIUM CHLORIDE ER 20 MEQ TAB.ER PO SCH ×2 (07:57→09:59)
[2019-08-23] MEDS: SODIUM CHLORIDE 0.9% 1,000 ML IV SCH (08:00)
--- NOTE | 2019-08-23 12:07 | P.PN ---
Subjective Progress Note Date: 08/23/19 Principal diagnosis: Coffee-ground emesis, GI bleed This is a 79-year-old female patient with a history of fibromyalgia, previous tobacco dependence, chronic obstructive pulmonary disease, gastroesophageal reflux disease, hyperlipidemia, degenerative joint disease, melanoma, anxiety, traumatic brain injury. Yesterday she developed an episode of coffee-ground emesis and presented to [facility] emergency room. Prior to being worked up she left AGAINST MEDICAL ADVICE. Later in the day her family convinced her to come here to the emergency room. She had 2 additional episodes of coffee-ground emesis. She was also having some delirium and again threatening to leave AGAINST MEDICAL ADVICE. She was eventually admitted to the intensive care unit. She was acting psychotic according to the staff. She has received 2 mg of Haldol and 1 mg of Dilaudid. Previous Ativan was given as well. She is currently resting comfortably in bed. Her son is at the bedside who supplies most of the information. She does live at home alone. He states some of her bizarre behavior is normal for her. Her chest x-ray reveals some mild cephalization with fluid volume overload. White count 12.4. Hemoglobin 8.0. Creatinine 0.64. Initial lactic acid 3.8, currently 3.3. Stool for occult blood is positive. Currently on 0.9 normal saline at 100 ML's per hour. Protonix 40 mg IV push daily. GI consult pending. The patient was seen today 08/23/2019 in follow-up in the intensive care unit. She is more awake and alert today. She's afebrile. Maintaining O2 saturations in the mid 90s on 2 L/m per nasal cannula. She's been hemodynamically stable. She is status post 2 units of packed red blood cells. Blood cultures reveal no growth. Current hemoglobin 9.8. White count 9.6. Creatinine 0.49. Potassium 3.3. She remains on IV Protonix. Currently nothing by mouth, plan is for EGD later today. Objective - Vital Signs Vital signs: Vital Signs Temp 98.0 F 08/23/19 08:00 Pulse 86 08/23/19 09:00 Resp 17 08/23/19 09:00 BP 144/52 08/23/19 09:00 Pulse Ox 95 08/23/19 09:00 Intake & Output 08/22/19 08/23/19 08/23/19 18:59 06:59 18:59 Intake Total 1900 2562 300 Output Total 650 600 120 Balance 1250 1962 180 Weight 84.7 kg Intake: IV 1900 1200 300 Sodium Chloride 0.9% 1, 600 200 300 000 ml @ 100 mls/hr IV . Q10H [facility] Rx#:[id number] Sodium Chloride 0.9% 1, 1300 1000 000 ml @ 999 mls/hr IV . Q1H1M ONE Rx#:[id number] Oral 120 Blood Product 1242 Rc As-1 Unit 310 [id number] Rc As-1 Unit 310 [id number] Output: Urine 650 600 120 Other: Voiding Method Indwelling Catheter Indwelling Catheter Indwelling Catheter # Bowel Movements 1 - Exam GENERAL EXAM: Alert pleasant 79-year-old female patient, comfortable in no apparent distress. On 2 L/m per nasal cannula. HEAD: Normocephalic. EYES: Normal reaction of pupils, equal size. NOSE: Clear with pink turbinates. THROAT: No erythema or exudates. NECK: No masses, no JVD. CHEST: No chest wall deformity. LUNGS: Equal air entry with no crackles, wheeze, rhonchi or dullness. CVS: S1 and S2 normal with no audible murmur, regular rhythm. ABDOMEN: No hepatosplenomegaly, normal bowel sounds, no guarding or rigidity. SPINE: No scoliosis or deformity SKIN: No rashes CENTRAL NERVOUS SYSTEM: Alert, oriented 2. Sitter at the bedside. No focal deficits, tone is normal in all 4 extremities. EXTREMITIES: There is no peripheral edema. No clubbing, no cyanosis. Pe ripheral pulses are intact. - Labs CBC & Chem 7: 08/23/19 06:29 08/23/19 06:29 Labs: Abnormal Lab Results - Last 24 Hours (Table) 08/22/19 08/22/19 08/22/19 Range/Units 01:24 14:25 19:58 WBC 13.1 H (3.8-10.6) k/uL RBC 2.42 L 2.21 L (3.80-5.40) m/uL Hgb 7.3 L 6.7 L* (11.4-16.0) gm/dL Hct 23.0 L 20.8 L (34.0-46.0) % RDW (11.5-15.5) % Potassium (3.5-5.1) mmol/L Chloride (98-107) mmol/L BUN (7-17) mg/dL Creatinine (0.52-1.04) mg/dL Calcium (8.4-10.2) mg/dL Crossmatch See Detail 08/23/19 08/23/19 Range/Units 06:29 06:29 WBC (3.8-10.6) k/uL RBC 3.21 L (3.80-5.40) m/uL Hgb 9.8 L D (11.4-16.0) gm/dL Hct 29.5 L (34.0-46.0) % RDW 15.6 H (11.5-15.5) % Potassium 3.3 L (3.5-5.1) mmol/L Chloride 116 H (98-107) mmol/L BUN 41 H (7-17) mg/dL Creatinine 0.49 L (0.52-1.04) mg/dL Calcium 8.1 L (8.4-10.2) mg/dL Crossmatch Microbiology - Last 24 Hours (Table) 08/22/19 04:01 Blood Culture - Preliminary Blood No Growth after 24 hours 08/22/19 04:01 Blood Culture - Preliminary Blood No Growth after 24 hours Assessment and Plan Assessment: Impression: #1 Anemia secondary to gastrointestinal bleeding with coffee-ground emesis and stool positive for occult blood. Plan is for EGD today. Status post 2 units of packed red blood cells. Current hemoglobin 9.8. #2 Altered mental status of unclear etiology. Computed tomography scan of the brain revealed no acute abnormality. More awake and alert today. #3 History of traumatic brain injury as a child. #4 Fibromyalgia. #5 Chronic obstructive pulmonary disease currently inactive and stable. #6 Previous history of chronic tobacco dependence. #7 Hyperlipidemia. #8 Degenerative joint disease. #9 Irritable bowel syndrome. #10 History of melanoma with subsequent excision. Plan: The patient was seen and evaluated by Dr. Carmichael. She is more awake and alert today. Computed tomography scan of the brain showed no acute abnormalities. Continue fluids at 0.9 normal saline at 100 ML's per hour. The plan is for EGD today. We'll continue to follow and make further recommendations based on her clinical status. Sitter is at the bedside. I, the cosigning physician, performed a history & physical examination of the patient. Lungs sounds are clear. Maintaining good O2 saturations in the 90s on 2 L/m per nasal cannula I discussed the assessment and plan of care with my nurse practitioner, Christine Patterson. I attest to the above consultation as dictated by her.
[2019-08-23] MEDS ORDERED: PROPOFOL 10 MG/ML 20 ML VIAL IV ONE (16:01)
[2019-08-23] MEDS ORDERED: LIDOCAINE 1% INJ 10MG/ML (20 ML MDV) ONE (16:01)
[2019-08-23] MEDS ORDERED: IV FLUID CONTINUATION 1,000 ML IV ONE (16:03)
--- NOTE | 2019-08-23 16:12 | P.PCN ---
Date of Procedure: 08/23/19 Procedure(s) Performed: BRIEF HISTORY: Patient is a 79-year-old, pleasant, white female, admitted hospital with acute upper GI bleed. She had several episodes of coffee-ground emesis. She had the Olympus standard grams per deciliter and dropped to 6.7 requiring 2 units of blood transfusion. She is scheduled for an upper endoscopy to evaluate further. PROCEDURE PERFORMED: Esophagogastroduodenoscopy. PREOPERATIVE DIAGNOSIS: Acute upper GI bleed. IV sedation per anesthesia. PROCEDURE: After informed consent was obtained, the patient was brought into the endoscopy unit. IV sedation was administered by Anesthesia under continuous monitoring. Initially the Olympus GIF-140 video endoscope was inserted into the mouth. Esophagus intubated without any difficulty. It was gradually advanced into the stomach and duodenum and carefully examined. The bulb and the second part of the duodenum appeared normal. The scope at this time was withdrawn to the stomach, adequately insufflated with air, and upon careful examination, mucosa of the antrum, had mild gastritis. Under direction there was a moderate to large size hiatal hernia noted with multiple Nas erosions but no active bleeding identified. The scope was then withdrawn into the esophagus. The GE junction was located at 33 cm from the incisors. The esophagus appeared normal. There were no erosions or ulcerations seen and the patient tolerated the procedure well. IMPRESSION: 1. Moderate size hiatal hernia with multiple Nas erosions but no evidence of active bleeding. 2. Mild diffuse gastritis. RECOMMENDATIONS: The findings of this examination were discussed with the patient. She'll be continued on Protonix 40 mg twice daily. Diet will be advanced as tolerated. Repeat CBC in the morning..
[2019-08-23] MEDS: diphenhydrAMINE 25 MG CAP PO PRN (22:05)
[2019-08-23] MEDS: DULoxetine HCL 60 MG CAPSULE.DR PO SCH (22:05)
[2019-08-23] MEDS: ATORVASTATIN 20 MG TAB PO SCH (22:05)
--- NOTE | 2019-08-23 22:42 | P.PN ---
Subjective Progress Note Date: 08/23/19 Principal diagnosis: Acute GI bleed Patient is a 79-year-old female with a known history of COPD, fibromyalgia, history of diverticulosis, hyperlipidemia, osteoarthritis and other multiple medical problems came to ER with complaints of coffee-ground emesis. Patient initially presented to [facility] and was being worked up for acute GI bleed. Patient left AGAINST MEDICAL ADVICE and later in the day family convinced her come to ER for evaluation. Patient had 2 additional coffee-ground emesis after that. Patient was confused and delirious. Currently being monitored in the MICU. Patient decided dose of Haldol and Dilaudid for pain. Patient cannot provide any history at this time. No complaints of chest pain or shortness of breath. Hemoglobin level was 9.3 on admission. Patient was also found to have lactic acidosis at 3.8 on admission. FOBT positive. Patient has been taking aspirin and Motrin twice daily due to pain from fibromyalgia. Chest x-ray showed new mild cephalization. Consider cardiogenic or noncardiogenic fluid load CT head showed no acute intracranial process. He is related small vessel chronic ischemic changes noted. 08/23/2018 Patient is currently lying in the bed comfortably. Less delusional and is able to cooperate the staff. Hemoglobin is stable. Gastroenterology is planning for EGD this afternoon. No further episodes of hematemesis. Did not require Haldol dose today. Patient has been afebrile. No chest pain or shortness of breath. No headache or dizziness or lightheadedness. Continue on PPI Current medications reviewed. Objective - Vital Signs Vital signs: Vital Signs Temp 98.0 F 08/23/19 08:00 Pulse 85 08/23/19 12:00 Resp 22 08/23/19 12:00 BP 143/60 08/23/19 12:00 Pulse Ox 94 L 08/23/19 12:00 Intake & Output 08/22/19 08/23/19 08/23/19 18:59 06:59 18:59 Intake Total 1900 2562 300 Output Total 650 600 120 Balance 1250 1962 180 Weight 84.7 kg Intake: IV 1900 1200 300 Sodium Chloride 0.9% 1, 600 200 300 000 ml @ 100 mls/hr IV . Q10H [facility] Rx#:[id number] Sodium Chloride 0.9% 1, 1300 1000 000 ml @ 999 mls/hr IV . Q1H1M ONE Rx#:[id number] Oral 120 Blood Product 1242 As-1 Unit 310 [id number] Rc As-1 Unit 310 [id number] Output: Urine 650 600 120 Other: Voiding Method Indwelling Catheter Indwelling Catheter Indwelling Catheter # Bowel Movements 1 - Exam PHYSICAL EXAMINATION: Patient is lying in the bed comfortably, no acute distress, awake alert and oriented. Less confusion and delusional. HEENT: Normocephalic. Neck is supple. Pupils reactive. Nostrils clear. Oral cavity is moist. Ears reveal no drainage. Neck reveals no JVD, carotid bruits, or thyromegaly. CHEST EXAMINATION: Trachea is central. Symmetrical expansion. Lung olea clear to auscultation and percussion. CARDIAC: Normal S1, S2 with no gallops. No murmurs ABDOMEN: Soft. Bowel sounds normal. No organomegaly. No abdominal bruits. Extremities: reveal no edema. No clubbing or cyanosis Neurologically awake, alert, oriented x3 with well-coordinated movements. No focal deficits noted Skin: No rash or skin lesions. Psychiatric: Coperative. Nonsuicidal Musculoskeletal: No joint swelling or deformity. Normal range of motion. - Labs CBC & Chem 7: 08/23/19 06:29 08/23/19 06:29 Labs: Abnormal Lab Results - Last 24 Hours (Table) 08/22/19 08/22/19 08/22/19 Range/Units 01:24 14:25 19:58 WBC 13.1 H (3.8-10.6) k/uL RBC 2.42 L 2.21 L (3.80-5.40) m/uL Hgb 7.3 L 6.7 L* (11.4-16.0) gm/dL Hct 23.0 L 20.8 L (34.0-46.0) % RDW (11.5-15.5) % Potassium (3.5-5.1) mmol/L Chloride (98-107) mmol/L BUN (7-17) mg/dL Creatinine (0.52-1.04) mg/dL Calcium (8.4-10.2) mg/dL Crossmatch See Detail 08/23/19 08/23/19 Range/Units 06:29 06:29 WBC (3.8-10.6) k/uL RBC 3.21 L (3.80-5.40) m/uL Hgb 9.8 L D (11.4-16.0) gm/dL Hct 29.5 L (34.0-46.0) % RDW 15.6 H (11.5-15.5) % Potassium 3.3 L (3.5-5.1) mmol/L Chloride 116 H (98-107) mmol/L BUN 41 H (7-17) mg/dL Creatinine 0.49 L (0.52-1.04) mg/dL Calcium 8.1 L (8.4-10.2) mg/dL Crossmatch Microbiology - Last 24 Hours (Table) 08/22/19 10:07 Blood Culture - Preliminary Blood No Growth after 24 hours 08/22/19 04:01 Blood Culture - Preliminary Blood No Growth after 24 hours 08/22/19 04:01 Blood Culture - Preliminary Blood No Growth after 24 hours Assessment and Plan Assessment: Coffee-ground emesis secondary to acute GI bleed. Likely upper GI. Patient does take NSAID's for pain at home Acute blood loss anemia secondary to GI bleed Altered mental status likely due to delirium. CT head negative. Lactic acidosis secondary to tissue hypoperfusion GERD Fibromyalgia COPD stable at this time History of melanoma IBS History of diverticulosis Anxiety DVT prophylaxis with SCDs Plan: Patient will be continued on IV hydration monitor for fluid overload. Oxygen therapy as needed. Monitor H&H. Continue with Protonix 40 mg IV daily. And with the pain management and monitor closely. Patient is currently in MICU. Critical care team on board. Gastroenterology plan for EGD today. Continue with Haldol when necessary. Pain management. Further recommendations based on the clinical course. Time with Patient: Greater than 30
[2019-08-24] MEDS ORDERED: LORazepam 2 MG/ML INJ IV STA (00:24)
[2019-08-24] MEDS: ALBUTEROL NEBULIZED 2.5 MG/3 ML INHALATION PRN ×4 (00:25→19:05)
[2019-08-24] MEDS: HALOPERIDOL LACTATE 5 MG/ML 1 ML VIAL IM PRN ×3 (01:21→22:30)
[2019-08-24] MEDS: SODIUM CHLORIDE 0.9% 1,000 ML IV SCH ×3 (02:57→22:47)
[2019-08-24] MEDS: CHOLECALCIFEROL 1,000 UNIT TAB PO SCH (08:13)
[2019-08-24] MEDS: DULoxetine HCL 60 MG CAPSULE.DR PO SCH ×2 (08:13→20:14)
[2019-08-24] MEDS: PANTOPRAZOLE 40 MG/10 ML VIAL IV SCH (08:14)
[2019-08-24] MEDS: ATORVASTATIN 20 MG TAB PO SCH (08:14)
[2019-08-24] MEDS: GABAPENTIN 100 MG CAP PO SCH ×2 (08:14→20:14)
[2019-08-24 09:14] LABS: Anisocytosis Slight; Basophils % (A) 0 %; Eosinophils % (A) 0 %; HCT 26.5 % (34.0-46.0); HGB 9.1 gm/dL (11.4-16.0); Hypochromasia Slight; Lymphocytes # (A) 0.7 k/uL (1.0-4.8); Lymphocytes % (A) 6 %; MCH 31.1 pg (25.0-35.0); MCHC 34.2 g/dL (31.0-37.0); Mean Platelet Volume 6.1; Monocytes # (A) 0.7 k/uL (0-1.0); Monocytes % (A) 7 %; Neutrophils # (A) 9.4 k/uL (1.3-7.7); Neutrophils % (A) 85 %; Platelet Count 227 k/uL (150-450); Poikilocytosis Slight; RBC 2.91 m/uL (3.80-5.40); RDW 16.1 % (11.5-15.5); WBC 11.1 k/uL (3.8-10.6)
[2019-08-24 12:24] LABS: ALT 64 U/L (9-52); AST 97 U/L (14-36); African American GFR (CKD) >90 (>60 ml/min/1.73 sqM); Albumin 2.9 g/dL (3.5-5.0); Alkaline Phosphatase 68 U/L (38-126); Anion Gap 3 mmol/L; Blood Urea Nitrogen 22 mg/dL (7-17); Calcium 8.1 mg/dL (8.4-10.2); Carbon Dioxide 26 mmol/L (22-30); Chloride 111 mmol/L (98-107); Glucose 133 mg/dL (74-99); Potassium 3.3 mmol/L (3.5-5.1); Sodium 140 mmol/L (137-145); Total Bilirubin 0.9 mg/dL (0.2-1.3); Total Protein 5.1 g/dL (6.3-8.2)
[2019-08-24] MEDS ORDERED: Potassium Replacement Protocol 1 EACH MISC MISCELLANE PRN (12:59)
[2019-08-24] MEDS: POTASSIUM CHLORIDE ER 20 MEQ TAB.ER PO SCH ×2 (13:26→14:17)
[2019-08-24] MEDS: PANTOPRAZOLE 40 MG TABLET PO SCH (16:42)
[2019-08-25] MEDS: ALBUTEROL NEBULIZED 2.5 MG/3 ML INHALATION PRN ×4 (07:07→19:30)
[2019-08-25] MEDS: PANTOPRAZOLE 40 MG TABLET PO SCH ×2 (07:16→15:37)
[2019-08-25] MEDS: ATORVASTATIN 20 MG TAB PO SCH (07:16)
[2019-08-25] MEDS: DULoxetine HCL 60 MG CAPSULE.DR PO SCH ×2 (07:16→21:32)
[2019-08-25] MEDS: CHOLECALCIFEROL 1,000 UNIT TAB PO SCH (07:16)
[2019-08-25] MEDS: GABAPENTIN 100 MG CAP PO SCH ×2 (07:16→21:32)
[2019-08-25] MEDS: SODIUM CHLORIDE 0.9% 1,000 ML IV SCH ×2 (07:17→15:27)
[2019-08-25] MEDS ORDERED: PANTOPRAZOLE 40 MG TABLET PO SCH (07:30)
--- NOTE | 2019-08-25 10:17 | PN ---
PROGRESS NOTE REQUESTING PHYSICIAN: Dr. Oneal The patient is a 79-year-old pleasant white female admitted to hospital with upper GI bleed. She underwent an upper endoscopy 2 days ago that showed a moderate to large hiatal hernia with multiple Nas erosions but no active bleeding. The patient has been on Protonix 40 mg twice daily. Since being in the hospital, no further episodes of bleeding. PHYSICAL EXAMINATION: She appears comfortable, no apparent distress. VITAL SIGNS: Stable. Blood pressure is 117/71, pulse is 75, temperature 98.4. HEENT examination unremarkable. Conjunctivae pink. Sclerae anicteric. Oral cavity no lesions. NECK: No JVD or lymph node enlargement. CHEST: Clear to auscultation. HEART: Regular rate and rhythm. ABDOMEN: Soft. Mild tenderness in the epigastric area. Bowel sounds are positive. No organomegaly. EXTREMITIES: No pedal edema. SKIN: No rashes. NEURO: She is alert and oriented x3. No focal deficits. LAB: Today WBC 11.1, hemoglobin 9.1, platelets normal. Basic metabolic panel is within normal limits. BUN is 32, creatinine 0.44, hemoglobin 2 days ago was 6.7. She received a total of 2 units of PRBC transfusion. IMPRESSION: 1. Severe symptomatic anemia with a hemoglobin of 6.1 with acute upper gastrointestinal bleed status post 2 units of blood transfusion. Upper endoscopy done 2 days ago for upper gastrointestinal bleed revealed a large hiatal hernia with multiple Nas erosions but no active bleeding. The patient presently on Protonix 40 mg daily, doing well. 2. Altered mental status, resolved. 3. History of chronic obstructive pulmonary disease. RECOMMENDATIONS: 1. Advance diet as tolerated. 2. Continue Protonix 40 mg daily. 3. Anti-reflux measures. 4. Diet modification. 5. Since the hemoglobin is stable, she can be discharged home with outpatient followup as needed. Thank you for this consultation. MMODL / IJN: [id number] /
[2019-08-25 12:03] LABS: Anisocytosis Slight; Basophils % (A) 1 %; Eosinophils # (A) 0.1 k/uL (0-0.7); Eosinophils % (A) 1 %; HCT 25.4 % (34.0-46.0); HGB 8.5 gm/dL (11.4-16.0); Lymphocytes # (A) 0.7 k/uL (1.0-4.8); Lymphocytes % (A) 10 %; MCH 31.5 pg (25.0-35.0); MCHC 33.5 g/dL (31.0-37.0); MCV 93.9 fL (80.0-100.0); Mean Platelet Volume 6.6; Monocytes # (A) 0.5 k/uL (0-1.0); Monocytes % (A) 7 %; Neutrophils % (A) 77 %; Platelet Count 198 k/uL (150-450); RBC 2.71 m/uL (3.80-5.40); RDW 16.9 % (11.5-15.5); WBC 6.5 k/uL (3.8-10.6)
[2019-08-25] MEDS: HALOPERIDOL LACTATE 5 MG/ML 1 ML VIAL IM PRN (21:38)
[2019-08-25] MEDS: diphenhydrAMINE 25 MG CAP PO PRN (23:27)
--- NOTE | 2019-08-26 00:27 | P.PN ---
Subjective Progress Note Date: 08/24/19 Principal diagnosis: Acute GI bleed Patient is a 79-year-old female with a known history of COPD, fibromyalgia, history of diverticulosis, hyperlipidemia, osteoarthritis and other multiple medical problems came to ER with complaints of coffee-ground emesis. Patient initially presented to [facility] and was being worked up for acute GI bleed. Patient left AGAINST MEDICAL ADVICE and later in the day family convinced her come to ER for evaluation. Patient had 2 additional coffee-ground emesis after that. Patient was confused and delirious. Currently being monitored in the MICU. Patient decided dose of Haldol and Dilaudid for pain. Patient cannot provide any history at this time. No complaints of chest pain or shortness of breath. Hemoglobin level was 9.3 on admission. Patient was also found to have lactic acidosis at 3.8 on admission. FOBT positive. Patient has been taking aspirin and Motrin twice daily due to pain from fibromyalgia. Chest x-ray showed new mild cephalization. Consider cardiogenic or noncardiogenic fluid load CT head showed no acute intracranial process. He is related small vessel chronic ischemic changes noted. 08/23/2018 Patient is currently lying in the bed comfortably. Less delusional and is able to cooperate the staff. Hemoglobin is stable. Gastroenterology is planning for EGD this afternoon. No further episodes of hematemesis. Did not require Haldol dose today. Patient has been afebrile. No chest pain or shortness of breath. No headache or dizziness or lightheadedness. Continue on PPI 08/24/2019 Patient status post EGD showing moderate size hiatal hernia with multiple Nas erosions. But no evidence of active bleeding. Mild diffuse gastritis. Patient is being continued on PPI. Hemoglobin is 9.1 today. Otherwise patient is less confused compared to yesterday. Continue to monitor H&H and possible transfer to rehab once hemoglobin is stable. Denied any complaints of chest pain or shortness of breath. No nausea vomiting or diarrhea or abdominal pain no hematemesis. No headache or dizziness or lightheadedness. Current medications reviewed. Objective - Vital Signs Vital signs: Vital Signs Temp 97.8 F 08/24/19 21:30 Pulse 84 08/24/19 21:30 Resp 20 08/24/19 21:30 BP 119/78 08/24/19 21:30 Pulse Ox 95 08/24/19 21:30 Intake & Output 08/24/19 08/24/19 08/25/19 06:59 18:59 06:59 Intake Total 850 400 Output Total 300 500 Balance 550 -100 Intake: Oral 850 400 Output: Urine 300 500 Other: Voiding Method Indwelling Catheter Indwelling Catheter # Voids 0 2 # Bowel Movements 7 1 - Exam PHYSICAL EXAMINATION: Patient is lying in the bed comfortably, no acute distress, awake alert and oriented. Less confusion HEENT: Normocephalic. Neck is supple. Pupils reactive. Nostrils clear. Oral cavity is moist. Ears reveal no drainage. Neck reveals no JVD, carotid bruits, or thyromegaly. CHEST EXAMINATION: Trachea is central. Symmetrical expansion. Lung olea clear to auscultation and percussion. CARDIAC: Normal S1, S2 with no gallops. No murmurs ABDOMEN: Soft. Bowel sounds normal. No organomegaly. No abdominal bruits. Extremities: reveal no edema. No clubbing or cyanosis Neurologically awake, alert, oriented x2-3 with well-coordinated movements. No focal deficits noted Skin: No rash or skin lesions. Psychiatric: Coperative. Nonsuicidal Musculoskeletal: No joint swelling or deformity. Normal range of motion. - Labs CBC & Chem 7: 08/25/19 11:46 08/24/19 08:59 Labs: Abnormal Lab Results - Last 24 Hours (Table) 08/24/19 08/24/19 Range/Units 08:59 08:59 WBC 11.1 H (3.8-10.6) k/uL RBC 2.91 L (3.80-5.40) m/uL Hgb 9.1 L (11.4-16.0) gm/dL Hct 26.5 L (34.0-46.0) % RDW 16.1 H (11.5-15.5) % Neutrophils # 9.4 H (1.3-7.7) k/uL Lymphocytes # 0.7 L (1.0-4.8) k/uL Potassium 3.3 L (3.5-5.1) mmol/L Chloride 111 H (98-107) mmol/L BUN 22 H (7-17) mg/dL Creatinine 0.44 L (0.52-1.04) mg/dL Glucose 133 H (74-99) mg/dL Calcium 8.1 L (8.4-10.2) mg/dL AST 97 H (14-36) U/L ALT 64 H (9-52) U/L Total Protein 5.1 L (6.3-8.2) g/dL Albumin 2.9 L (3.5-5.0) g/dL Microbiology - Last 24 Hours (Table) 08/22/19 10:07 Blood Culture - Preliminary Blood No Growth after 48 hours 08/22/19 04:01 Blood Culture - Preliminary Blood No Growth after 48 hours 08/22/19 04:01 Blood Culture - Preliminary Blood No Growth after 48 hours Assessment and Plan Assessment: Coffee-ground emesis secondary to acute GI bleed. Status post EGD. Multiple camera lesions and diffuse gastritis. Acute blood loss anemia secondary to GI bleed Altered mental status likely due to delirium. CT head negative. Lactic acidosis secondary to tissue hypoperfusion GERD Fibromyalgia COPD stable at this time History of melanoma IBS History of diverticulosis Anxiety DVT prophylaxis with SCDs Plan: Patient will be continued on IV hydration monitor for fluid overload. Oxygen therapy as needed. Monitor H&H. Patient is status post EGD. Currently was transferred to medical floor. Continue with Protonix twice a day. And with the pain management and monitor closely. GI is following.. Continue with Haldol when necessary. Pain management. Further recommendations based on the clinical course. Time with Patient: Greater than 30
--- NOTE | 2019-08-26 00:29 | P.PN ---
Subjective Progress Note Date: 08/25/19 Principal diagnosis: Acute GI bleed Patient is a 79-year-old female with a known history of COPD, fibromyalgia, history of diverticulosis, hyperlipidemia, osteoarthritis and other multiple medical problems came to ER with complaints of coffee-ground emesis. Patient initially presented to [facility] and was being worked up for acute GI bleed. Patient left AGAINST MEDICAL ADVICE and later in the day family convinced her come to ER for evaluation. Patient had 2 additional coffee-ground emesis after that. Patient was confused and delirious. Currently being monitored in the MICU. Patient decided dose of Haldol and Dilaudid for pain. Patient cannot provide any history at this time. No complaints of chest pain or shortness of breath. Hemoglobin level was 9.3 on admission. Patient was also found to have lactic acidosis at 3.8 on admission. FOBT positive. Patient has been taking aspirin and Motrin twice daily due to pain from fibromyalgia. Chest x-ray showed new mild cephalization. Consider cardiogenic or noncardiogenic fluid load CT head showed no acute intracranial process. He is related small vessel chronic ischemic changes noted. 08/23/2018 Patient is currently lying in the bed comfortably. Less delusional and is able to cooperate the staff. Hemoglobin is stable. Gastroenterology is planning for EGD this afternoon. No further episodes of hematemesis. Did not require Haldol dose today. Patient has been afebrile. No chest pain or shortness of breath. No headache or dizziness or lightheadedness. Continue on PPI 08/24/2019 Patient status post EGD showing moderate size hiatal hernia with multiple Nas erosions. But no evidence of active bleeding. Mild diffuse gastritis. Patient is being continued on PPI. Hemoglobin is 9.1 today. Otherwise patient is less confused compared to yesterday. Continue to monitor H&H and possible transfer to rehab once hemoglobin is stable. Denied any complaints of chest pain or shortness of breath. No nausea vomiting or diarrhea or abdominal pain no hematemesis. No headache or dizziness or lightheadedness. 08/25/2019 Patient is currently sitting in a chair comfortably. More awake and oriented. Tolerate oral diet. No further episodes of hematemesis. Hemoglobin is 8.5 today. Currently being continued on Protonix 40 mg twice daily. No chest pain or shortness of breath. No fever no chills. Anticipate discharged to rehab Current medications reviewed. Objective - Vital Signs Vital signs: Vital Signs Temp 98.2 F 08/25/19 15:00 Pulse 80 08/25/19 15:18 Resp 20 08/25/19 15:00 BP 104/70 08/25/19 15:00 Pulse Ox 93 L 08/25/19 15:00 Intake & Output 08/24/19 08/25/19 08/25/19 18:59 06:59 18:59 Intake Total 500 320 Output Total 734 Balance -234 320 Intake: Oral 500 320 Output: Urine 500 Post Void Residual 234 Other: Voiding Method Indwelling Catheter Bedside Commode # Voids 0 2 3 # Bowel Movements 1 0 - Exam PHYSICAL EXAMINATION: Patient is lying in the bed comfortably, no acute distress, awake alert and oriented. Less confusion HEENT: Normocephalic. Neck is supple. Pupils reactive. Nostrils clear. Oral cavity is moist. Ears reveal no drainage. Neck reveals no JVD, carotid bruits, or thyromegaly. CHEST EXAMINATION: Trachea is central. Symmetrical expansion. Lung olea clear to auscultation and percussion. CARDIAC: Normal S1, S2 with no gallops. No murmurs ABDOMEN: Soft. Bowel sounds normal. No organomegaly. No abdominal bruits. Extremities: reveal no edema. No clubbing or cyanosis Neurologically awake, alert, oriented x2-3 with well-coordinated movements. No focal deficits noted Skin: No rash or skin lesions. Psychiatric: Coperative. Nonsuicidal Musculoskeletal: No joint swelling or deformity. Normal range of motion. - Labs CBC & Chem 7: 08/25/19 11:46 08/24/19 08:59 Labs: Abnormal Lab Results - Last 24 Hours (Table) 08/25/19 Range/Units 11:46 RBC 2.71 L (3.80-5.40) m/uL Hgb 8.5 L (11.4-16.0) gm/dL Hct 25.4 L (34.0-46.0) % RDW 16.9 H (11.5-15.5) % Lymphocytes # 0.7 L (1.0-4.8) k/uL Microbiology - Last 24 Hours (Table) 08/22/19 10:07 Blood Culture - Preliminary Blood No Growth after 72 hours 08/22/19 04:01 Blood Culture - Preliminary Blood No Growth after 72 hours 08/22/19 04:01 Blood Culture - Preliminary Blood No Growth after 72 hours Assessment and Plan Assessment: Coffee-ground emesis secondary to acute GI bleed. Status post EGD. Multiple camera lesions and diffuse gastritis. Acute blood loss anemia secondary to GI bleed Altered mental status likely due to delirium. CT head negative. Lactic acidosis secondary to tissue hypoperfusion GERD Fibromyalgia COPD stable at this time History of melanoma IBS History of diverticulosis Anxiety DVT prophylaxis with SCDs Plan: Patient will be continued on IV hydration monitor for fluid overload. Oxygen therapy as needed. Monitor H&H. Patient is status post EGD. Currently was transferred to medical floor. Continue with Protonix twice a day. And with the pain management and monitor closely. GI is following.. Continue with Haldol when necessary. Pain management. Further recommendations based on the clinical course. Time with Patient: Greater than 30
[2019-08-26] MEDS: HALOPERIDOL LACTATE 5 MG/ML 1 ML VIAL IM PRN ×2 (01:19→20:18)
[2019-08-26] MEDS: SODIUM CHLORIDE 0.9% 1,000 ML IV SCH ×3 (05:20→20:18)
[2019-08-26 07:02] LABS: Anisocytosis Slight; Basophils % (A) 0 %; Eosinophils # (A) 0.2 k/uL (0-0.7); Eosinophils % (A) 3 %; HCT 26.3 % (34.0-46.0); HGB 8.7 gm/dL (11.4-16.0); Lymphocytes # (A) 0.9 k/uL (1.0-4.8); Lymphocytes % (A) 13 %; MCH 30.8 pg (25.0-35.0); MCHC 32.9 g/dL (31.0-37.0); MCV 93.7 fL (80.0-100.0); Mean Platelet Volume 6.7; Monocytes # (A) 0.6 k/uL (0-1.0); Monocytes % (A) 8 %; Neutrophils # (A) 4.7 k/uL (1.3-7.7); Neutrophils % (A) 72 %; Platelet Count 224 k/uL (150-450); RBC 2.81 m/uL (3.80-5.40); RDW 17.2 % (11.5-15.5); WBC 6.6 k/uL (3.8-10.6)
[2019-08-26 07:13] LABS: African American GFR (CKD) >90 (>60 ml/min/1.73 sqM); Anion Gap 3 mmol/L; Blood Urea Nitrogen 14 mg/dL (7-17); Carbon Dioxide 27 mmol/L (22-30); Chloride 108 mmol/L (98-107); Glucose 106 mg/dL (74-99); Potassium 3.5 mmol/L (3.5-5.1); Sodium 138 mmol/L (137-145)
[2019-08-26] MEDS: ALBUTEROL NEBULIZED 2.5 MG/3 ML INHALATION PRN ×2 (07:18→11:11)
[2019-08-26] MEDS: PANTOPRAZOLE 40 MG TABLET PO SCH ×2 (07:37→15:08)
[2019-08-26] MEDS: DULoxetine HCL 60 MG CAPSULE.DR PO SCH ×2 (07:37→20:18)
[2019-08-26] MEDS: GABAPENTIN 100 MG CAP PO SCH ×2 (07:37→20:18)
[2019-08-26] MEDS: CHOLECALCIFEROL 1,000 UNIT TAB PO SCH (07:38)
[2019-08-26] MEDS: ATORVASTATIN 20 MG TAB PO SCH (07:38)
--- NOTE | 2019-08-26 12:11 | PN ---
PROGRESS NOTE DATE OF DICTATION: 08/26/2019 The patient is a 79-year-old pleasant white female admitted to the hospital with an upper GI bleed. She had upper endoscopy done 2 days ago that showed evidence of moderate large hiatal hernia with multiple Nas erosions, but no active bleeding. Patient has been on Protonix 40 mg twice daily. She is doing better. She has no further episodes of bleeding. Denies any abdominal pain. PHYSICAL EXAMINATION: Appears comfortable in no apparent distress. VITAL SIGNS: Stable. Blood pressure is 126/71, pulse rate 92, and temperature 97.9. HEENT examination: Unremarkable. Conjunctivae pink. Sclerae anicteric. Oral cavity no lesions. NECK: No JVD or lymph node enlargement. Chest was clear to auscultation. HEART: Regular rate and rhythm. ABDOMEN: Soft. Bowel sounds are positive. No organomegaly. EXTREMITIES: No pedal edema. SKIN: No rashes. NEUROLOGIC: Alert and oriented x3. No focal deficits. LABS: Done from today: WBC is 6.6, hemoglobin 8.7, platelets 224. Basic metabolic panel is within normal limits. IMPRESSION: 1. Acute upper gastrointestinal bleed status post EGD 3 days ago showed moderate to large hiatal hernia with Nas erosions but no active bleeding, the patient on Protonix 40 mg twice daily. No further episodes of bleeding and doing well. 2. Confusion, resolved. RECOMMENDATIONS: Continue with Protonix 40 mg daily. Continue with regular diet and she can be discharged home with an outpatient followup as needed. Thank you for this consultation. MMODL / IJN: [id number] /
[2019-08-26 14:36] VITALS: RESP 18
[2019-08-27] MEDS: HALOPERIDOL LACTATE 5 MG/ML 1 ML VIAL IM PRN (00:33)
[2019-08-27] MEDS: diphenhydrAMINE 25 MG CAP PO PRN (00:33)
[2019-08-27 04:22] VITALS: TEMP 98
[2019-08-27 08:22] VITALS: BP 146/86; PULSE 83
[2019-08-27] MEDS: GABAPENTIN 100 MG CAP PO SCH (09:05)
[2019-08-27] MEDS: DULoxetine HCL 60 MG CAPSULE.DR PO SCH (09:05)
[2019-08-27] MEDS: ATORVASTATIN 20 MG TAB PO SCH (09:05)
[2019-08-27] MEDS: SODIUM CHLORIDE 0.9% 1,000 ML IV SCH (09:05)
[2019-08-27] MEDS: CHOLECALCIFEROL 1,000 UNIT TAB PO SCH (09:05)
[2019-08-27] MEDS: PANTOPRAZOLE 40 MG TABLET PO SCH (09:05)
--- NOTE | 2019-08-27 13:20 | P.DS ---
Providers Date of admission: 08/22/19 07:22 Expected date of discharge: 08/27/19 Attending physician: Alex Rayo MD Consults: 08/22/19 07:22 Consult Physician Stat Consulting Provider: Rosemarie Carmichael Consult Reason/Comments: ICU management Do you want consulting provider notified?: Already Contacted Consult Physician Urgent Consulting Provider: Jackelyn Sharma Consult Reason/Comments: GI bleeding. Do you want consulting provider notified?: Already Contacted Primary care physician: Stated None Hospital Course: Final diagnosis Coffee-ground emesis secondary to acute GI bleed Acute blood loss anemia secondary to GI bleed Altered mental status likely due to delirium Lactic acidosis secondary to tissue hypo-perfusion GERD Fibromyalgia COPD stable at this time History of melanoma IBS History of diverticulosis Anxiety DVT prophylaxis Discharge disposition Patient is being discharged in a stable condition with guarded prognosis to home and will have home care follow. Total time taken is 35 minutes. History of present illness This is a 79-year-old female who was recently admitted with complaints of coffee-ground emesis and GI bleed and was being closely monitored. Patient was originally at [facility] and left AGAINST MEDICAL ADVICE and was convinced by her family to come to [facility] for further evaluation. Patient was confused and delirious and unable to provide any type of history and was being closely monitored in the MICU briefly. Currently patient has not had any vomiting or blood loss and today's hemoglobin is 8.7 and is hemodynamically stable. During hospitalization patient underwent a CT head showing no acute intracranial process with some small vessel chronic ischemic changes noted. Patient's mentation improved during hospitalization. GI was following the patient underwent an EGD showing a moderate size hiatal hernia with multiple Nas erosions with no active bleeding. Patient was started on Protonix 40 mg twice daily and will continue in the outpatient setting. Patient will follow-up with GI in the outpatient setting as needed. Currently patient's condition is stable and son is at the bedside and would like to go home. They do not rehab at this time but is agreeable to home care. Referral was sent by case management. Currently patient's condition is stable with much improvement and is being discharged today. Patient denies any chest pain, shortness of breath, or palpitations at this time. Patient is afebrile. Patient denies any nausea or vomiting and is tolerating diet. Guarded prognosis. On exam vital signs are stable. Temp is 98F, pulse is 83, respirations are 18, blood pressure is 146/86, oxygen saturation is 93% on room air. Cardio S1, S2 are present. Respiratory system shows diminished breath sounds at the bases otherwise clear to auscultation. Abdomen is soft and nontender. Nervous system shows no focal deficits. Please refer to medication reconciliation sheet for a list of medications. Patient Condition at Discharge: Fair Plan - Discharge Summary New Discharge Prescriptions: New Gabapentin [Neurontin] 100 mg PO BID #60 cap Pantoprazole [Protonix] 40 mg PO AC-BID #60 tablet.dr Continue DULoxetine HCL [Cymbalta] 60 mg PO BID Albuterol Nebulized [Ventolin Nebulized] 2.5 mg INHALATION RT-Q4H PRN #0 nebu PRN Reason: Shortness Of Breath diphenhydrAMINE HCL [Benadryl] 25 mg PO DAILY PRN PRN Reason: Allergy Symptoms Cod Liver Oil 1 cap PO DAILY Zinc 50 mg PO DAILY Multivit-Min/FA/Lycopen/Lutein [Centrum Silver Tablet] 1 tab PO DAILY Acetaminophen [Tylenol Arthritis] 650 mg PO DAILY Cholecalciferol (Vitamin D3) [Vitamin D3] 2,000 unit PO DAILY Simvastatin [Zocor] 40 mg PO DAILY Discontinued Ibuprofen [Advil] 400 mg PO BID Aspirin 325 mg PO DAILY Discharge Medication List DULoxetine HCL [Cymbalta] 60 mg PO BID 01/24/15 [History] Albuterol Nebulized [Ventolin Nebulized] 2.5 mg INHALATION RT-Q4H PRN #0 nebu 02/06/15 [Rx] Acetaminophen [Tylenol Arthritis] 650 mg PO DAILY 08/22/19 [History] Cholecalciferol (Vitamin D3) [Vitamin D3] 2,000 unit PO DAILY 08/22/19 [History] Cod Liver Oil 1 cap PO DAILY 08/22/19 [History] Multivit-Min/FA/Lycopen/Lutein [Centrum Silver Tablet] 1 tab PO DAILY 08/22/19 [History] Simvastatin [Zocor] 40 mg PO DAILY 08/22/19 [History] Zinc 50 mg PO DAILY 08/22/19 [History] diphenhydrAMINE HCL [Benadryl] 25 mg PO DAILY PRN 08/22/19 [History] Gabapentin [Neurontin] 100 mg PO BID #60 cap 08/24/19 [Rx] Pantoprazole [Protonix] 40 mg PO AC-BID #60 tablet. 08/24/19 [Rx] Follow up Appointment(s)/Referral(s): Len Ac DO [Doctor of Osteopathic Medicine] - 1 Week Ambulatory/Diagnostic Orders: ALT [LAB.AMB] Time Frame: 2 Days, Location: None Selected AST [LAB.AMB] Time Frame: 2 Days, Location: None Selected Basic Metabolic Panel [LAB.AMB] Time Frame: 2 Days, Location: None Selected Complete Blood Count w/diff [LAB.AMB] Time Frame: 2 Days, Location: None Selected Patient Instructions/Handouts: Gastrointestinal Bleeding (DC) Activity/Diet/Wound Care/Special Instructions: Activity as tolerated patient to find new primary doctor-Son aware repeat labs in 2-3 days regular diet as tolerated Discharge Disposition: HOME SELF-CARE
== END 2019-08-27 13:36 | disposition home or self-care (01) | DRG 378 ==
LOC: EC 00:33 → 2SICU 07:22 → 4MS4W 08-23 16:20
PROVIDERS: ADMIT Internal Medicine; ATTEND Internal Medicine
PROC: 0DJ08ZZ Inspection of Upper Intestinal Tract, Via Natural or Artificial Opening Endoscopic (ICD-10-PCS; principal; 2019-08-23 07:30)
DX: K25.4 Chronic or unspecified gastric ulcer with hemorrhage (principal); D62 Acute posthemorrhagic anemia; E87.2 Acidosis; K44.9 Diaphragmatic hernia without obstruction or gangrene; E78.5 Hyperlipidemia, unspecified; E87.70 Fluid overload, unspecified; F41.9 Anxiety disorder, unspecified; I10 Essential (primary) hypertension; J44.9 Chronic obstructive pulmonary disease, unspecified; K21.9 Gastro-esophageal reflux disease without esophagitis; K29.70 Gastritis, unspecified, without bleeding; K58.0 Irritable bowel syndrome with diarrhea; M19.90 Unspecified osteoarthritis, unspecified site; M79.7 Fibromyalgia; Z79.82 Long term (current) use of aspirin; Z79.899 Other long term (current) drug therapy; Z82.49 Family history of ischemic heart disease and other diseases of the circulatory system; Z85.820 Personal history of malignant melanoma of skin; Z87.820 Personal history of traumatic brain injury; Z87.891 Personal history of nicotine dependence; Z90.710 Acquired absence of both cervix and uterus; Z96.641 Presence of right artificial hip joint; R45.1 Restlessness and agitation; T42.4X5A Adverse effect of benzodiazepines, initial encounter; R41.0 Disorientation, unspecified; Z78.1 Physical restraint status; Z90.49 Acquired absence of other specified parts of digestive tract; Z91.041 Radiographic dye allergy status; Z83.2 Family history of diseases of the blood and blood-forming organs and certain disorders involving the immune mechanism; Z60.2 Problems related to living alone
CPT/HCPCS: 36415; 43235; 70450; 71045; 80048; 80053; 81003; 82140; 82271; 83605; 83690; 84484; 85025; 85027; 85610; 85730; 86850; 86900; 86901; 86920; 87040; 93005; 94640; 94760; 96365; 96372; 96375; 99291

== ENCOUNTER 2021-08-30 14:47 | Emergency (ER) | payer MEDICARE, OTHER ==
[2021-08-30] MEDS ORDERED: HYDROcodone/APAP 5-325MG 1 EACH TAB PO STA (14:53)
[2021-08-30 14:56] VITALS: TEMP 98.2
--- NOTE | 2021-08-30 15:24 | ED ---
General Adult HPI - General Stated complaint: Fall, head injury Time Seen by Provider: 08/30/21 14:53 Source: patient, EMS, RN notes reviewed Mode of arrival: EMS Limitations: no limitations - History of Present Illness Initial comments: 81-year-old female presents emergency Department from retirement for a fall. Patient try to go to the wheelchair missed did fall and strike her head. Patient has no other injuries complaint of chronic pain which is normal for her from her fibromyalgia per patient and staff. Patient is at her normal baseline had no laceration no confusion no neck or back pain. - Related Data Home Medications Medication Instructions Recorded Confirmed Multivit-Min/FA/Lycopen/Lutein 1 tab PO DAILY 08/22/19 08/30/21 [Centrum Silver Tablet] diphenhydrAMINE HCL [Benadryl] 25 mg PO DAILY PRN 08/22/19 08/30/21 Acetaminophen Tab [Tylenol] 650 mg PO Q6H 08/30/21 08/30/21 Ativan Gel 1 mg TRANSDERM TID 08/30/21 08/30/21 DULoxetine HCL [Cymbalta] 20 mg PO BID 08/30/21 08/30/21 Divalproex Sodium [Depakote 125 mg PO QID 08/30/21 08/30/21 Sprinkle] Ferrous Sulfate [Iron] 325 mg PO DAILY 08/30/21 08/30/21 Omeprazole 20 mg PO DAILY 08/30/21 08/30/21 amLODIPine [Norvasc] 10 mg PO HS 08/30/21 08/30/21 Allergies Allergy/AdvReac Type Severity Reaction Status Date / Time Iodinated Contrast Media Allergy Rash/Hives Verified 08/30/21 16:23 [Iodinated Contrast Media - IV Dye] lisinopril Allergy Unknown Verified 08/30/21 16:23 metronidazole [From Flagyl] Allergy Unknown Verified 08/30/21 16:23 strawberry Allergy Unknown Verified 08/30/21 16:23 Review of Systems ROS Statement: Those systems with pertinent positive or pertinent negative responses have been documented in the HPI. ROS Other: All systems not noted in ROS Statement are negative. Past Medical History Past Medical History: Cancer, COPD, Fibromyalgia, GERD/Reflux, Hyperlipidemia, Osteoarthritis (OA) Additional Past Medical History / Comment(s): HX MELANOMA, IBS, DIVERTICULI, History of Any Multi-Drug Resistant Organisms: None Reported Past Surgical History: Appendectomy, Cholecystectomy, Hysterectomy, Orthopedic Surgery Additional Past Surgical History / Comment(s): MELANOMA REMOVED shoulder and left arm with lymph nodes removed. BREAST BX - benign. anterior approach total right hip replacement 02-03-15, right wrist surgery after fracture with pins Past Anesthesia/Blood Transfusion Reactions: Motion Sickness Past Psychological History: Anxiety Past Alcohol Use History: None Reported Past Drug Use History: None Reported - Past Family History Mother Family Medical History: Congestive Heart Failure (CHF) Father Family Medical History: Deep Vein Thrombosis (DVT), Myocardial Infarction (MT) General Exam Limitations: no limitations General appearance: alert, in no apparent distress Head exam: Present: atraumatic, normocephalic, normal inspection Eye exam: Present: normal appearance, PERRL, EOMI. Absent: scleral icterus, conjunctival injection, periorbital swelling ENT exam: Present: normal exam, normal oropharynx, mucous membranes moist Neck exam: Present: normal inspection. Absent: tenderness, meningismus, lymphadenopathy Respiratory exam: Present: normal lung sounds bilaterally. Absent: respiratory distress, wheezes, rales, rhonchi, stridor Cardiovascular Exam: Present: regular rate, normal rhythm, normal heart sounds. Absent: systolic murmur, diastolic murmur, rubs, gallop, clicks Neurological exam: Present: alert, oriented X3, CN II-XII intact, reflexes normal. Absent: motor sensory deficit Skin exam: Present: warm, dry, intact, normal color. 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 Patient has no cerebral hemorrhage no mass effect, nose cervical spine injury. Patient discharged in stable condition. Disposition Clinical Impression: Fall, Head contusion Disposition: HOME SELF-CARE Condition: Stable Instructions (If sedation given, give patient instructions): Head Injury (ED) Additional Instructions: Please return to the Emergency Department if symptoms worsen or any other concerns. Is patient prescribed a controlled substance at d/c from ED?: No Referrals: Ayo Coyle MD [Primary Care Provider] - 1-2 days Time of Disposition: 16:57
--- NOTE | 2021-08-30 16:30 | CT ---
EXAMINATION TYPE: CT brain opal wo con DATE OF EXAM: 08/30/2021 COMPARISON: CT brain 08/22/2019 HISTORY: pain post fall CT DLP: 1366.3 mGycm Automated exposure control for dose reduction was used. There is cerebral cortical atrophy. There is no mass effect nor midline shift. There is no sign of in tracranial hemorrhage. There is 4 x 3 cm area of hypodensity right posterior temporal parietal lobe r elated to old cortical infarct. The calvarium is intact. Skull base is intact. The cervical vertebra have fairly normal alignment. There is mild spurring of the endplates in lower cervical spine at C6-7. The facet joints are intact. There is no compression fracture. There is esther l aeration of the mastoid sinuses. 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 Infarct appears new compare d to the previous exam of 08/22/2019. No acute intracranial abnormality. Mild spondylotic changes in the lower cervical spine. No fracture.
[2021-08-30 18:07] VITALS: BP 149/83; PULSE 90; RESP 18
== END 2021-08-30 18:07 | disposition home or self-care (01) ==
LOC: EC 14:47
DX: S00.93XA Contusion of unspecified part of head, initial encounter (principal); J44.9 Chronic obstructive pulmonary disease, unspecified; E78.5 Hyperlipidemia, unspecified; M19.90 Unspecified osteoarthritis, unspecified site; K21.9 Gastro-esophageal reflux disease without esophagitis; F41.9 Anxiety disorder, unspecified; W18.30XA Fall on same level, unspecified, initial encounter; Z79.899 Other long term (current) drug therapy; Z82.49 Family history of ischemic heart disease and other diseases of the circulatory system
CPT/HCPCS: 70450; 72125; 99284

== ENCOUNTER 2021-09-08 11:14 | Inpatient (IN) | payer MEDICARE, OTHER ==
[2021-09-08] MEDS ORDERED: ALBUTEROL HFA INHALER INHALATION STA (11:23)
--- NOTE | 2021-09-08 11:34 | ED ---
General Adult HPI - General Chief complaint: Shortness of Breath Stated complaint: SOB,Edema Time Seen by Provider: 09/08/21 11:15 Source: patient, EMS, RN notes reviewed Mode of arrival: EMS Limitations: no limitations - History of Present Illness Initial comments: Patient is a pleasant 81-year-old female presenting to the emergency Department with shortness of breath. Patient is somewhat a poor historian. Onset was several days ago. Patient has had some leg swelling and started recently on Lasix however despite his symptoms worsen. Patient denies history of similar symptoms previously. No chest pain. - Related Data Home Medications Medication Instructions Recorded Confirmed Multivit-Min/FA/Lycopen/Lutein 1 tab PO DAILY 08/22/19 09/08/21 [Centrum Silver Tablet] diphenhydrAMINE HCL [Benadryl] 25 mg PO DAILY PRN 08/22/19 09/08/21 Acetaminophen Tab [Tylenol] 650 mg PO Q6H 08/30/21 09/08/21 Ativan Gel 1 mg TRANSDERM TID 08/30/21 09/08/21 DULoxetine HCL [Cymbalta] 20 mg PO BID 08/30/21 09/08/21 Divalproex Sodium [Depakote 125 mg PO BID 08/30/21 09/08/21 Sprinkle] Ferrous Sulfate [Iron] 325 mg PO DAILY 08/30/21 09/08/21 Omeprazole 20 mg PO DAILY 08/30/21 09/08/21 amLODIPine [Norvasc] 10 mg PO DAILY 08/30/21 09/08/21 Furosemide [Lasix] 40 mg PO DAILY 09/08/21 09/08/21 Simethicone Chew [Mylicon Chew] 80 mg PO Q8H PRN 09/08/21 09/08/21 Allergies Allergy/AdvReac Type Severity Reaction Status Date / Time Iodinated Contrast Media Allergy Rash/Hives Verified 09/08/21 11:30 [Iodinated Contrast Media - IV Dye] lisinopril Allergy Unknown Verified 09/08/21 11:30 metronidazole [From Flagyl] Allergy Unknown Verified 09/08/21 11:30 strawberry Allergy Unknown Verified 09/08/21 11:30 Review of Systems ROS Statement: Those systems with pertinent positive or pertinent negative responses have been documented in the HPI. ROS Other: All systems not noted in ROS Statement are negative. Constitutional: Denies: fever Eyes: Denies: eye pain ENT: Denies: ear pain Respiratory: Reports: cough, dyspnea Cardiovascular: Reports: edema. Denies: chest pain Endocrine: Denies: fatigue Gastrointestinal: Denies: abdominal pain Genitourinary: Denies: dysuria Musculoskeletal: Denies: back pain Skin: Denies: rash Neurological: Denies: weakness Past Medical History Past Medical History: Cancer, COPD, Fibromyalgia, GERD/Reflux, Hyperlipidemia, Osteoarthritis (OA) Additional Past Medical History / Comment(s): HX MELANOMA, IBS, DIVERTICULI, History of Any Multi-Drug Resistant Organisms: None Reported Past Surgical History: Appendectomy, Cholecystectomy, Hysterectomy, Orthopedic Surgery Additional Past Surgical History / Comment(s): MELANOMA REMOVED shoulder and left arm with lymph nodes removed. BREAST BX - benign. anterior approach total right hip replacement 02-03-15, right wrist surgery after fracture with pins Past Anesthesia/Blood Transfusion Reactions: Motion Sickness Past Psychological History: Anxiety Smoking Status: Never smoker Past Alcohol Use History: None Reported Past Drug Use History: None Reported - Past Family History Mother Family Medical History: Congestive Heart Failure (CHF) Father Family Medical History: Deep Vein Thrombosis (DVT), Myocardial Infarction ([place]) General Exam Limitations: no limitations General appearance: alert, in no apparent distress Head exam: Present: normocephalic Eye exam: Present: normal appearance Neck exam: Present: normal inspection Respiratory exam: Present: wheezes Cardiovascular Exam: Present: regular rate, normal rhythm GI/Abdominal exam: Present: soft. Absent: tenderness Extremities exam: Present: pedal edema. Absent: calf tenderness Neurological exam: Present: alert Psychiatric exam: Present: normal affect, normal mood Skin exam: Present: normal color Course Vital Signs 09/08/21 09/08/21 11:15 13:01 Temperature 97.7 F Pulse Rate 78 84 Respiratory 18 18 Rate Blood Pressure 146/72 136/75 O2 Sat by Pulse 99 97 Oximetry EKG Findings - EKG Comments: EKG Findings:: Normal sinus rhythm with a rate of 82. GA 158. QRS 138. QT 448. QTC 523. Left axis. Right bundle branch block. No acute ST change. Medical Decision Making - Medical Decision Making Patient reevaluated and updated. Case was discussed with Dr. Oneal, who will admit covering Dr. Hurd. - Lab Data Result diagrams: 09/08/21 11:31 09/08/21 11:31 Lab Results 09/08/21 09/08/21 09/08/21 Range/Units 11:31 11: 11:31 WBC 10.4 (3.8-10.6) k/uL RBC 3.67 L (3.80-5.40) m/uL Hgb 12.3 (11.4-16.0) gm/dL Hct 35.1 (34.0-46.0) % MCV 95.8 (80.0-100.0) fL MCH 33.4 (25.0-35.0) pg MCHC 34.9 (31.0-37.0) g/dL RDW 12.4 (11.5-15.5) % Plt Count 320 (150-450) k/uL MPV 6.7 Neutrophils % 73 % Lymphocytes % 11 % Monocytes % 9 % Eosinophils % 3 % Basophils % 0 % Neutrophils # 7.6 (1.3-7.7) k/uL Lymphocytes # 1.2 (1.0-4.8) k/uL Monocytes # 1.0 (0-1.0) k/uL Eosinophils # 0.3 (0-0.7) k/uL Basophils # 0.0 (0-0.2) k/uL PT 11.4 (9.0-12.0) sec INR 1.1 (<1.2) APTT 23.6 (22.0-30.0) sec Sodium 127 L (137-145) mmol/L Potassium 4.4 (3.5-5.1) mmol/L Chloride 94 L (98-107) mmol/L Carbon Dioxide 27 (22-30) mmol/L Anion Gap 6 mmol/L BUN 17 (7-17) mg/dL Creatinine 0.41 L (0.52-1.04) mg/dL Est GFR (CKD-EPI)AfAm >90 (>60 ml/min/1.73 sqM) Est GFR (CKD-EPI)NonAf >90 (>60 ml/min/1.73 sqM) Glucose 108 H (74-99) mg/dL Plasma Lactic Acid Devon (0.7-2.0) mmol/L Calcium 8.7 (8.4-10.2) mg/dL Total Bilirubin 0.8 (0.2-1.3) mg/dL AST 97 H (14-36) U/L ALT 59 H (4-34) U/L Alkaline Phosphatase 102 (38-126) U/L Troponin I (0.000-0.034) ng/mL Total Protein 6.3 (6.3-8.2) g/dL Albumin 3.6 (3.5-5.0) g/dL Coronavirus (PCR) (Not Detectd) 09/08/21 09/08/21 09/08/21 Range/Units 11:31 11:31 11:59 WBC (3.8-10.6) k/uL RBC (3.80-5.40) m/uL Hgb (11.4-16.0) gm/dL Hct (34.0-46.0) % MCV (80.0-100.0) fL MCH (25.0-35.0) pg MCHC (31.0-37.0) g/dL RDW (11.5-15.5) % Plt Count (150-450) k/uL MPV Neutrophils % % Lymphocytes % % Monocytes % % Eosinophils % % Basophils % % Neutrophils # (1.3-7.7) k/uL Lymphocytes # (1.0-4.8) k/uL Monocytes # (0-1.0) k/uL Eosinophils # (0-0.7) k/uL Basophils # (0-0.2) k/uL PT (9.0-12.0) sec INR (<1.2) APTT (22.0-30.0) sec Sodium (137-145) mmol/L Potassium (3.5-5.1) mmol/L Chloride (98-107) mmol/L Carbon Dioxide (22-30) mmol/L Anion Gap mmol/L BUN (7-17) mg/dL Creatinine (0.52-1.04) mg/dL Est GFR (CKD-EPI)AfAm (>60 ml/min/1.73 sqM) Est GFR (CKD-EPI)NonAf (>60 ml/min/1.73 sqM) Glucose (74-99) mg/dL Plasma Lactic Acid Devon 1.0 (0.7-2.0) mmol/L Calcium (8.4-10.2) mg/dL Total Bilirubin (0.2-1.3) mg/dL AST (14-36) U/L ALT (4-34) U/L Alkaline Phosphatase (38-126) U/L Troponin I 0.017 (0.000-0.034) ng/mL Total Protein (6.3-8.2) g/dL Albumin (3.5-5.0) g/dL Coronavirus (PCR) Not Detected (Not Detectd) - Radiology Data Radiology results: image reviewed (Chest x-ray shows cardiac megaly.) Disposition Clinical Impression: Congestive heart failure, Dyspnea Disposition: ADMITTED IP TO THIS HOSP Is patient prescribed a controlled substance at d/c from ED?: No Referrals: Christopher Hurd MD [Primary Care Provider] - 1-2 days Decision Time: 13:05
[2021-09-08 11:54] LABS: Basophils % (A) 0 %; Eosinophils # (A) 0.3 k/uL (0-0.7); Eosinophils % (A) 3 %; HCT 35.1 % (34.0-46.0); HGB 12.3 gm/dL (11.4-16.0); Lymphocytes # (A) 1.2 k/uL (1.0-4.8); Lymphocytes % (A) 11 %; MCH 33.4 pg (25.0-35.0); MCHC 34.9 g/dL (31.0-37.0); MCV 95.8 fL (80.0-100.0); Mean Platelet Volume 6.7; Monocytes % (A) 9 %; Neutrophils # (A) 7.6 k/uL (1.3-7.7); Neutrophils % (A) 73 %; Platelet Count 320 k/uL (150-450); RBC 3.67 m/uL (3.80-5.40); RDW 12.4 % (11.5-15.5); WBC 10.4 k/uL (3.8-10.6)
[2021-09-08 12:09] LABS: INR 1.1 (<1.2); Partial Thromboplastin Time 23.6 sec (22.0-30.0); Prothrombin Time 11.4 sec (9.0-12.0)
[2021-09-08 12:11] LABS: ALT 59 U/L (4-34); AST 97 U/L (14-36); African American GFR (CKD) >90 (>60 ml/min/1.73 sqM); Albumin 3.6 g/dL (3.5-5.0); Alkaline Phosphatase 102 U/L (38-126); Anion Gap 6 mmol/L; Blood Urea Nitrogen 17 mg/dL (7-17); Calcium 8.7 mg/dL (8.4-10.2); Carbon Dioxide 27 mmol/L (22-30); Chloride 94 mmol/L (98-107); Glucose 108 mg/dL (74-99); Non-African American GFR(CKD) >90 (>60 ml/min/1.73 sqM); Potassium 4.4 mmol/L (3.5-5.1); Sodium 127 mmol/L (137-145); Total Bilirubin 0.8 mg/dL (0.2-1.3); Total Protein 6.3 g/dL (6.3-8.2)
[2021-09-08] MEDS ORDERED: MORPHINE SULFATE 2 MG/ML SYRINGE IVP STA (12:55)
--- NOTE | 2021-09-08 12:59 | XR ---
EXAMINATION TYPE: XR chest 1V portable DATE OF EXAM: 09/08/2021 COMPARISON: 08/22/2019 INDICATION: Dyspnea TECHNIQUE: Single frontal view of the chest is obtained. FINDINGS: The heart size is large. The pulmonary vasculature is normal. Minimal subsegmental infiltrates may be at the right lung base. Consider atelectasis IMPRESSION: 1. Mild subsegmental atelectasis predominantly at the right lung base. 2. Cardiomegaly.
[2021-09-08] MEDS ORDERED: ASPIRIN 325 MG TAB PO STA (13:07)
[2021-09-08] MEDS ORDERED: methylPREDNISolone SOD SUCCI 125 MG/2 ML VIAL IV STA (13:07)
[2021-09-08] MEDS ORDERED: IPRATROPIUM-ALBUTEROL 3 ML NEB INHALATION PRN (13:07)
[2021-09-08] MEDS ORDERED: SODIUM CHLORIDE 0.9% 1,000 ML IV STA (13:10)
[2021-09-08] MEDS ORDERED: FAMOTIDINE 20 MG/2 ML VIAL IV STA (13:52)
[2021-09-08] MEDS ORDERED: diphenhydrAMINE 50 MG/ML 1 ML VIAL IVP STA (13:52)
[2021-09-08] MEDS: FUROSEMIDE 10 MG/ML 4 ML VIAL IV SCH (14:04)
--- NOTE | 2021-09-08 14:37 | CT ---
EXAMINATION TYPE: CT angio chest DATE OF EXAM: 09/08/2021 COMPARISON: CT November 14, 2012 HISTORY: Dyspnea. CT DLP: 593.2 mGycm. Automated Exposure Control for Dose Reduction was Utilized. CONTRAST: CTA scan of the thorax is performed with IV Contrast, patient injected with 100 mL of Isovue 370, pul monary embolism protocol. MIP Images are created on CT scanner and reviewed. FINDINGS: LUNGS: Exam slightly suboptimal as patient unable to hold breath. Occasional scattered calcified nodu les are benign granulomas throughout the right middle and lower lobes redemonstrated. No new focal co nsolidation or groundglass opacity. No pleural effusion or pneumothorax seen bilaterally. MEDIASTINUM: There is suboptimal study with most dense contrast in SVC. Near equal contrast noted in the aorta versus pulmonary arteries. No thoracic aortic aneurysm or dissection. No central pulmonary embolism. Heterogeneity in the periphery identified making evaluation for smaller segmental and subse gmental pulmonary emboli suboptimal. There are no greater than 1 cm noncalcified hilar or mediastinal lymph nodes. Prominent but calcified right hilar lymph nodes are redemonstrated. Cardiomegaly is red emonstrated with calcification at level of the mitral valve more prominent than prior. No pericardial effusion. There is new large hiatal hernia or intrathoracic stomach with abnormal twisting on curren t study. OTHER: Cholecystectomy clips redemonstrated. Mild subcutaneous edema in the upper to mid abdominal w all now identified. Underlying scoliosis is seen. Mild to moderate compression type fracture L1 level is new from prior CT but thought chronic in age, some posterior retropulsion along inferior aspect s agittal image 89 into the spinal canal noted. IMPRESSION: 1. Suboptimal study without central pulmonary embolism. Cannot entirely exclude smaller segmental and subsegmental PE on this study. 2. Evidence of old granulomatous disease. No new suspicious acute pulmonary process. 3. Cardiomegaly redemonstrated. New large hiatal hernia or intrathoracic stomach with abnormal twisti ng from 2013 CT presumed chronic in age however. 4. 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
[2021-09-08] MEDS: IPRATROPIUM-ALBUTEROL 3 ML NEB INHALATION SCH ×2 (14:53→21:57)
[2021-09-08] MEDS ORDERED: LORazepam 2 MG/ML INJ IV STA (15:21)
[2021-09-08] MEDS ORDERED: SIMETHICONE 80 MG CHEWABLE PO PRN (15:56)
[2021-09-08] MEDS: HALOPERIDOL LACTATE 5 MG/ML 1 ML VIAL IM PRN ×2 (17:16→22:50)
[2021-09-08] MEDS: NITROGLYCERIN OINT 1 INCH/GM PACKET TOPICAL SCH (21:42)
[2021-09-08] MEDS: methylPREDNISolone SOD SUCCI 125 MG/2 ML VIAL IV SCH (21:43)
[2021-09-08] MEDS ORDERED: FUROSEMIDE 10 MG/ML 4 ML VIAL IV SCH (23:45)
--- NOTE | 2021-09-08 23:48 | P.HPIM ---
History of Present Illness H&P Date: 09/08/21 Chief Complaint: Shortness of breath Patient is a 81-year-old female with a known history of COPD, fibromyalgia, osteoarthritis, hyperlipidemia, GERD, history of Nas multiple ulcers status post EGD and 2019 and anxiety/depression presents to ER with complaints of shortness of breath. Patient was also complaining of worsening bilateral leg swelling and was recently started on Lasix. Otherwise patient is a poor historian. Denied any chest pain. Does have cough with no sputum production. No nausea vomiting or abdominal pain or diarrhea. Denies any recent illnesses. Chest x-ray showed mild subsegmental atelectasis predominantly at the right lung base. Cardiomegaly. EKG showed normal sinus rhythm Laboratory showed WBC 10.4 hemoglobin 12.3 and platelets 320 D-dimer 1.[address] angiogram of the chest was done showed suboptimal study without central pulmonary embolism. Evidence of old granulomatous disease. No suspicious new acute process. Cardiomegaly redemonstrated. New large hiatal hernia or intrathoracic stomach with abnormal twisting from 2013 CT presumed chronic nasal however Mild to moderate compression type L1 fracture with slight posterior repulsion suspected chronic in age but new from 2013 study. Review of Systems Constitutional: Patient denies any fever or chills . No generalized weakness or weight loss. Abdomen: Patient denied nausea vomiting and diarrhea and abdominal pain. Cardiovascular: Patient denies any chest pain+short of breath no palpitations. Respiratory: Patient does have cough without sputum production. Shortness of breath. Neurologic: Patient denied any numbness or tingling headache. Complete review of systems could not be obtained from the patient at this time. Past Medical History Past Medical History: Cancer, COPD, Fibromyalgia, GERD/Reflux, Hyperlipidemia, Osteoarthritis (OA) Additional Past Medical History / Comment(s): HX MELANOMA, IBS, DIVERTICULI, History of Any Multi-Drug Resistant Organisms: None Reported Past Surgical History: Appendectomy, Cholecystectomy, Hysterectomy, Orthopedic Surgery Additional Past Surgical History / Comment(s): MELANOMA REMOVED shoulder and left arm with lymph nodes removed. BREAST BX - benign. anterior approach total right hip replacement 02-03-15, right wrist surgery after fracture with pins Past Anesthesia/Blood Transfusion Reactions: Motion Sickness Past Psychological History: Anxiety Smoking Status: Never smoker Past Alcohol Use History: None Reported Past Drug Use History: None Reported - Past Family History Mother Family Medical History: Congestive Heart Failure (CHF) Father Family Medical History: Deep Vein Thrombosis (DVT), Myocardial Infarction ([place]) Medications and Allergies Home Medications Medication Instructions Recorded Confirmed Type Multivit-Min/FA/Lycopen/Lutein 1 tab PO DAILY 08/22/19 09/08/21 History [Centrum Silver Tablet] diphenhydrAMINE HCL [Benadryl] 25 mg PO DAILY PRN 08/22/19 09/08/21 History Acetaminophen Tab [Tylenol] 650 mg PO Q6H 08/30/21 09/08/21 History Ativan Gel 1 mg TRANSDERM TID 08/30/21 09/08/21 History DULoxetine HCL [Cymbalta] 20 mg PO BID 08/30/21 09/08/21 History Divalproex Sodium [Depakote 125 mg PO BID 08/30/21 09/08/21 History Sprinkle] Ferrous Sulfate [Iron] 325 mg PO DAILY 08/30/21 09/08/21 History Omeprazole 20 mg PO DAILY 08/30/21 09/08/21 History amLODIPine [Norvasc] 10 mg PO DAILY 08/30/21 09/08/21 History Furosemide [Lasix] 40 mg PO DAILY 09/08/21 09/08/21 History Simethicone Chew [Mylicon Chew] 80 mg PO Q8H PRN 09/08/21 09/08/21 History Allergies Allergy/AdvReac Type Severity Reaction Status Date / Time Iodinated Contrast Media Allergy Rash/Hives Verified 09/08/21 11:30 [Iodinated Contrast Media - IV Dye] lisinopril Allergy Unknown Verified 09/08/21 11:30 metronidazole [From Flagyl] Allergy Unknown Verified 09/08/21 11:30 strawberry Allergy Unknown Verified 09/08/21 11:30 Physical Exam Vitals: Vital Signs Temp Pulse Resp BP Pulse Ox 09/08/21 15:06 76 17 09/08/21 14:55 75 18 09/08/21 13:01 84 18 136/75 97 09/08/21 11:15 97.7 F 78 18 146/72 99 Intake and Output 09/08/21 09/08/21 09/08/21 06:59 14:59 22:59 Output Total 1200 Balance -1200 Output: Urine 1200 Other: Weight 104.326 kg PHYSICAL EXAMINATION: Patient is lying in the bed comfortably, no acute distress, awake alert and oriented.. HEENT: Normocephalic. Neck is supple. Pupils reactive. Nostrils clear. Oral cavity is moist. Neck reveals no JVD, carotid bruits, or thyromegaly. CHEST EXAMINATION: Trachea is central. Symmetrical expansion. Bilateral diminished air entry. Mild wheezing. CARDIAC: Normal S1, S2 with no gallops. No murmurs ABDOMEN: Soft. Bowel sounds normal. No organomegaly. No abdominal bruits. Extremities: 3+ edema. No clubbing or cyanosis Neurologically awake, alert, oriented x2-3 with well-coordinated movements. No focal deficits noted Skin: No rash or skin lesions. Psychiatric: Cooperative. delirious Musculoskeletal: No joint swelling or deformity. Normal range of motion. Results CBC & Chem 7: 09/08/21 11:09/08/21 11:31 Labs: Abnormal Lab Results - Last 24 Hours (Table) 09/08/21 09/08/21 09/08/21 Range/Units 11: 11: 11:31 RBC 3.67 L (3.80-5.40) m/uL D-Dimer 1.64 H (<0.60) mg/L FEU Sodium 127 L (137-145) mmol/L Chloride 94 L (98-107) mmol/L Creatinine 0.41 L (0.52-1.04) mg/dL Glucose 108 H (74-99) mg/dL AST 97 H (14-36) U/L ALT 59 H (4-34) U/L Thrombosis Risk Factor Assmnt - DVT/VTE Prophylaxis DVT/VTE Prophylaxis: Pharmacologic Prophylaxis ordered Assessment and Plan Assessment: Worsening shortness of breath likely due to COPD exacerbation. Bilateral lower extremity swelling Hyponatremia Elevated D-dimer level without evidence of central PE on CTA Cardiomegaly Large hiatal hernia Mild to moderate L1 compression fracture chronic in nature as per CT. History of multiple small gastric ulcers GERD Anxiety/depression Fibromyalgia Osteoarthritis GI and DVT prophylaxis with Protonix and heparin subcu Plan: Patient will be current on duo nebs and IV steroids. Continue with Lasix due to bilateral lower extremity swelling and follow-up BNP level. 2D echocardiogram was ordered and cardiology was consulted. Continue with home medications including Depakote and Cymbalta. Follow-up CBC and BMP tomorrow. Time with Patient: Greater than 30
[2021-09-09] MEDS: DULoxetine HCL 20 MG CAPSULE.DR PO SCH ×4 (00:02→21:03)
[2021-09-09] MEDS: DIVALPROEX SPRINKLE 125 MG CAP.SPRINK PO SCH ×3 (00:03→21:03)
[2021-09-09] MEDS: methylPREDNISolone SOD SUCCI 125 MG/2 ML VIAL IV SCH ×5 (00:14→23:16)
[2021-09-09] MEDS: HEPARIN SODIUM,PORCINE/PF 5,000 UNIT/0.5 ML SYRINGE SQ SCH ×5 (00:14→23:09)
[2021-09-09] MEDS: NITROGLYCERIN OINT 1 INCH/GM PACKET TOPICAL SCH ×6 (00:16→23:09)
[2021-09-09] MEDS ORDERED: HALOPERIDOL LACTATE 5 MG/ML 1 ML VIAL IM PRN (00:30)
[2021-09-09] MEDS ORDERED: MORPHINE SULFATE 2 MG/ML SYRINGE IVP STA (00:31)
[2021-09-09] MEDS: FUROSEMIDE 10 MG/ML 4 ML VIAL IV SCH (06:05)
[2021-09-09 07:42] LABS: African American GFR (CKD) >90 (>60 ml/min/1.73 sqM); Anion Gap 9 mmol/L; Blood Urea Nitrogen 20 mg/dL (7-17); Calcium 8.6 mg/dL (8.4-10.2); Carbon Dioxide 24 mmol/L (22-30); Chloride 99 mmol/L (98-107); Glucose 130 mg/dL (74-99); Non-African American GFR(CKD) >90 (>60 ml/min/1.73 sqM); Potassium 4.1 mmol/L (3.5-5.1); Sodium 132 mmol/L (137-145)
[2021-09-09] MEDS: PANTOPRAZOLE 40 MG TABLET PO SCH (07:51)
[2021-09-09] MEDS: MULTIVITAMINS, THERA 1 EACH TAB PO SCH (07:51)
[2021-09-09 07:59] LABS: Basophils % (A) 0 %; Eosinophils % (A) 0 %; HCT 34.8 % (34.0-46.0); HGB 11.9 gm/dL (11.4-16.0); Lymphocytes # (A) 0.5 k/uL (1.0-4.8); Lymphocytes % (A) 6 %; MCH 33.1 pg (25.0-35.0); MCHC 34.1 g/dL (31.0-37.0); MCV 97.1 fL (80.0-100.0); Mean Platelet Volume 7.2; Monocytes # (A) 0.4 k/uL (0-1.0); Monocytes % (A) 5 %; Neutrophils # (A) 6.6 k/uL (1.3-7.7); Neutrophils % (A) 86 %; Platelet Count 299 k/uL (150-450); RBC 3.59 m/uL (3.80-5.40); RDW 13.1 % (11.5-15.5); WBC 7.6 k/uL (3.8-10.6)
--- NOTE | 2021-09-09 08:49 | US ---
EXAMINATION TYPE: US venous doppler duplex LE DATE OF EXAM: 09/09/2021 7:46 AM COMPARISON: NONE CLINICAL HISTORY: leg swelling. SIDE PERFORMED: Bilateral TECHNIQUE: The lower extremity deep venous system is examined utilizing real time linear array sonog ifeoma with graded compression, doppler sonography and color-flow sonography. VESSELS IMAGED: Common Femoral Vein Deep Femoral Vein Greater Saphenous Vein * Femoral Vein Popliteal Vein Small Saphenous Vein * Proximal Calf Veins (* superficial vessels) Right Leg: Negative for DVT Left Leg: Limited Uncooperative patient, patient refused rest of exam, no DVT seen in area scanned. IMPRESSION: 1. Right lower extremity ultrasound negative for deep venous thrombosis. 2. Left lower extremity ultrasound Limited to the areas patient allowed scanned. Within the visualize d left lower extremity no deep venous thrombosis is evident. There are areas that remain out of the f [id number] cannot be evaluated.
[2021-09-09] MEDS ORDERED: ASPIRIN 325 MG TAB PO SCH (09:00)
[2021-09-09] MEDS: IPRATROPIUM-ALBUTEROL 3 ML NEB INHALATION SCH ×4 (09:01→20:29)
[2021-09-09] MEDS: amLODIPine 5 MG TAB PO SCH (09:43)
[2021-09-09] MEDS: FUROSEMIDE 40 MG TAB PO SCH (09:43)
[2021-09-09 11:03] VITALS: BMI 39.4
--- NOTE | 2021-09-09 15:48 | CONS ---
CONSULTATION REASON FOR CONSULTATION: Heart failure. This is a 81-year-old lady who presented to the emergency room with shortness of breath. Very poor historian. She is in the room. I cannot communicate with her. She was very upset, angry and did not want me to examine her, so I came back again and, when once her niece was here, with her help I was able to examine the patient. Very limited history is available. She carries a diagnosis of hypertension and takes amlodipine. She also has Lasix 40 mg daily. She is not sure why she is here. She is not in any distress. She complains of pain all over and tells me that she has fibromyalgia. Specifically, she denies chest pain and has no palpitations. Very limited history was available. Please refer to the chart for other information. PHYSICAL EXAMINATION: On examination, blood pressure is 128/70, pulse rate is about 80 per minute. HEENT unremarkable. Fundus was not examined by me. Neck is supple. There is no JVD. I do not hear a carotid bruit. Heart exam reveals S1, S2 heard normally. No significant murmurs. Lungs are clear. Abdomen is soft. Lower extremities reveal diminished pulses. Central nervous system grossly no focal deficits. EKG revealed sinus mechanism, leftward axis, right bundle branch block pattern. LAB DATA: Troponins are unremarkable. Her BNP is normal. D-dimer was elevated and she had a CT angiogram which was also a suboptimal study, but no evidence of any large main trunk pulmonary embolism noted. No central pulmonary embolism. IMPRESSION: 1. Patient's symptoms are unclear. She certainly does not have chest pain. 2. Hypertension. 3. Anxiety disorder. 4. Probable chronic obstructive pulmonary disease, but patient does not smoke. RECOMMENDATIONS: I have no specific suggestions other than resuming amlodipine and Lasix, and patient can be discharged to the [facility] facility [facility] she came from. No intervention from a cardiac standpoint. I recommended echocardiogram, but patient refused the study, and we will try one more time while her niece is here to see if she will cooperate. Thank you very much for the consult. MMODL / IJN: [id number] /
[2021-09-09] MEDS ORDERED: ACETAMINOPHEN TAB 325 MG TAB PO PRN (16:44)
--- NOTE | 2021-09-09 22:32 | P.PN ---
Subjective Progress Note Date: 09/09/21 Patient is a 81-year-old female with a known history of COPD, fibromyalgia, osteoarthritis, hyperlipidemia, GERD, history of Nas multiple ulcers status post EGD and 2019 and anxiety/depression presents to ER with complaints of shortness of breath. Patient was also complaining of worsening bilateral leg swelling and was recently started on Lasix. Otherwise patient is a poor historian. Denied any chest pain. Does have cough with no sputum production. No nausea vomiting or abdominal pain or diarrhea. Denies any recent illnesses. Chest x-ray showed mild subsegmental atelectasis predominantly at the right lung base. Cardiomegaly. EKG showed normal sinus rhythm Laboratory showed WBC 10.4 hemoglobin 12.3 and platelets 320 D-dimer 1.[address] angiogram of the chest was done showed suboptimal study without central pulmonary embolism. Evidence of old granulomatous disease. No suspicious new acute process. Cardiomegaly redemonstrated. New large hiatal hernia or intrathoracic stomach with abnormal twisting from 2012 CT presumed chronic nasal however Mild to moderate compression type L1 fracture with slight posterior repulsion suspected chronic in age but new from 2013 study. 09/09/2021 Patient is currently sitting in the chair. Awake alert and agitated at times. Patient was given a dose of Haldol last night. No complaints of chest pain and breathing status is getting better. Leg swelling is also better and IV Lasix changed to by mouth. Patient was seen by cardiology. Patient is also being continued IV steroids and duo nebs due to COPD exacerbation. Breathing status is improving. Laboratory data showed WBC 7.6 hemoglobin 11.9 and platelets 299 Sodium 132 potassium 4.1 chloride 99 BUN 14 creatinine 0.43x3 negative. Current medications reviewed. Objective - Vital Signs Vital signs: Vital Signs Temp 98.2 F 09/09/21 19:33 Pulse 84 09/09/21 20:42 Resp 18 09/09/21 19:33 BP 136/84 09/09/21 19:33 Pulse Ox 96 09/09/21 19:33 Intake & Output 09/09/21 09/09/21 09/10/21 06:59 18:59 06:59 Intake Total 118 Balance 118 Weight 104.326 kg Intake: Oral 118 Other: # Voids 1 2 - Exam PHYSICAL EXAMINATION: Patient is lying in the bed comfortably, no acute distress, awake alert and oriented.. HEENT: Normocephalic. Neck is supple. Pupils reactive. Nostrils clear. Oral cavity is moist. Neck reveals no JVD, carotid bruits, or thyromegaly. CHEST EXAMINATION: Trachea is central. Symmetrical expansion. Bilateral d iminished air entry. Mild wheezing. CARDIAC: Normal S1, S2 with no gallops. No murmurs ABDOMEN: Soft. Bowel sounds normal. No organomegaly. No abdominal bruits. Extremities: 3+ edema. No clubbing or cyanosis Neurologically awake, alert, oriented x2-3 with well-coordinated movements. No focal deficits noted Skin: No rash or skin lesions. Psychiatric: Cooperative. delirious Musculoskeletal: No joint swelling or deformity. Normal range of motion. - Labs CBC & Chem 7: 09/09/21 06:51 09/09/21 06:51 Labs: Abnormal Lab Results - Last 24 Hours (Table) 09/09/21 09/09/21 Range/Units 06:51 06:51 RBC 3.59 L (3.80-5.40) m/uL Lymphocytes # 0.5 L (1.0-4.8) k/uL Sodium 132 L (137-145) mmol/L BUN 20 H (7-17) mg/dL Creatinine 0.43 L (0.52-1.04) mg/dL Glucose 130 H (74-99) mg/dL Assessment and Plan Assessment: Worsening shortness of breath likely due to COPD exacerbation. Bilateral lower extremity swelling Hyponatremia Elevated D-dimer level without evidence of central PE on CTA. LE duplex scan negative for DVT Cardiomegaly Large hiatal hernia Mild to moderate L1 compression fracture chronic in nature as per CT. History of multiple small gastric ulcers GERD Anxiety/depression Fibromyalgia Osteoarthritis GI and DVT prophylaxis with Protonix and heparin subcu Plan: Patient will be current on duo nebs and IV steroids. Continue with Lasix due to bilateral lower extremity swelling and BNP level 370. lasix changed to by mouth. 2D echocardiogram was ordered and cardiology is on board. Continue with home medications including Depakote and Cymbalta. Follow-up CBC and BMP tomorrow. Time with Patient: Greater than 30
[2021-09-09] MEDS ORDERED: HYDROcodone/APAP 5-325MG 1 EACH TAB PO PRN (22:50)
[2021-09-10] MEDS: methylPREDNISolone SOD SUCCI 125 MG/2 ML VIAL IV SCH ×3 (05:17→19:13)
[2021-09-10] MEDS: IPRATROPIUM-ALBUTEROL 3 ML NEB INHALATION SCH ×4 (07:53→19:22)
--- NOTE | 2021-09-10 08:16 | ECHOF ---
Referral Reason:LVF MEASUREMENTS -------- HEIGHT: 162.6 cm WEIGHT: 104.3 kg BP: RVIDd: 2.3 cm (< 3.3) IVSd: 1.1 cm (0.6 - 1.1) LVIDd: 4.9 cm (3.9 - 5.3) LVPWd: 1.2 cm (0.6 - 1.1) IVSs: 1.7 cm LVIDs: 3.1 cm LVPWs: 1.6 cm LA Diam: 3.2 cm (2.7 - 3.8) Ao Diam: 3.1 cm (2.0 - 3.7) AV Cusp: 2.2 cm (1.5 - 2.6) LA Diam: 3.7 cm (2.7 - 3.8) MV E Dylan: 1.11 m/s MV DecT: 293 ms MV A Dylan: 1.06 m/s MV E/A Ratio: 1.05 RAP: 5.00 mmHg RVSP: 28.48 mmHg FINDINGS -------- Sinus rhythm. This was a technically adequate study. The left ventricular size is normal. There is borderline concentric left ventricular hypertrophy. Overall left ventricular systolic function is normal with, an EF between 55 - 60 %. The right ventricle is normal in size. The left atrium is normal in size. The right atrium is normal in size. Interatrial and interventricular septum intact. The aortic valve is trileaflet, and appears structurally normal. No aortic stenosis or regurgitation. Moderate mitral annular calcification present. Mild tricuspid regurgitation present. Right ventricular systolic pressure is normal at < 35 mmHg. The pulmonic valve was not well visualized. The aortic root size is normal. IVC Not well visulized. There is no pericardial effusion. CONCLUSIONS -------- 1. The left ventricular size is normal. 2. There is borderline concentric left ventricular hypertrophy. 3. Overall left ventricular systolic function is normal with, an EF between 55 - 60 %. 4. Moderate mitral annular calcification present. 5. Mild tricuspid regurgitation present. 6. There is no pericardial effusion. [employer]: Camilla Borja [facility]
[2021-09-10] MEDS: HEPARIN SODIUM,PORCINE/PF 5,000 UNIT/0.5 ML SYRINGE SQ SCH ×2 (08:36→17:00)
[2021-09-10] MEDS: DULoxetine HCL 20 MG CAPSULE.DR PO SCH (08:39)
[2021-09-10] MEDS: amLODIPine 5 MG TAB PO SCH (08:39)
[2021-09-10] MEDS: DIVALPROEX SPRINKLE 125 MG CAP.SPRINK PO SCH ×2 (08:39→08:41)
[2021-09-10] MEDS: PANTOPRAZOLE 40 MG TABLET PO SCH (08:39)
[2021-09-10] MEDS: FUROSEMIDE 40 MG TAB PO SCH (08:39)
[2021-09-10] MEDS: MULTIVITAMINS, THERA 1 EACH TAB PO SCH (08:39)
[2021-09-10] MEDS ORDERED: ASPIRIN 81 MG PO SCH (09:00)
[2021-09-10 09:23] LABS: Basophils # (A) 0.02 X 10*3/uL (0.00-0.10); Basophils % (A) 0.1 %; Eosinophils # (A) 0 X 10*3/uL (0.04-0.35); Eosinophils % (A) 0 %; HGB 11.6 g/dL (12.0-15.0); Lymphocytes # (A) 0.65 X 10*3/uL (0.90-5.00); Lymphocytes % (A) 4.8 %; MCH 32.9 pg (27.0-32.0); MCHC 33.1 g/dL (32.0-37.0); MCV 99.2 fL (80.0-97.0); Mean Platelet Volume 8.5 fL (9.5-12.2); Monocytes # (A) 0.37 X 10*3/uL (0.20-1.00); Monocytes % (A) 2.7 %; Neutrophils # (A) 12.36 X 10*3/uL (1.80-7.70); Neutrophils % (A) 91.7 %; Platelet Count 366 X 10*3/uL (140-440); RBC 3.53 X 10*6/uL (4.10-5.20)
[2021-09-10 09:50] LABS: African American GFR (CKD) 106.7 (60.0-200.0); Anion Gap 12.2 mmol/L (10.00-18.00); BUN/Creat Ratio 50.2 Ratio (12.00-20.00); Blood Urea Nitrogen 25.1 mg/dL (9.0-27.0); Calcium 9.3 mg/dL (8.7-10.3); Carbon Dioxide 24.8 mmol/L (20.0-27.5); Non-African American GFR(CKD) 92.1 (60.0-200.0); Potassium 4.3 mmol/L (3.5-5.5)
--- NOTE | 2021-09-10 10:17 | P.PN ---
Subjective This is a 81-year-old female with a past medical history of hypertension, COPD, fibromyalgia, hyperlipidemia, osteoarthritis. We were consulted for dyspnea, possible CHF. Patient is a very poor historian. Unclear of the patient's symptoms since she is very upset with staff and assessments. She denies any chest pain, shortness of breath or palpitations. EKG revealed sinus mechanism, left axis deviation, right bundle branch block troponins are unremarkable. Echocardiogram from EF 5560 percent, mild tricuspid regurgitation, moderate mitral annular calcification present. Labs revealed WBC 13.5, hemoglobin 11.6, platelets 366, sodium 132, potassium 4.3, P1 25, serum creatinine 0.5. She is currently maintained on amlodipine 5 mg daily, aspirin 80 mg daily, Lasix 40 mg daily. GENERAL: in no acute distress. NECK: Supple without JVD or thyromegaly. LUNGS: Breath sounds clear to auscultation bilaterally. Respiration equal and unlabored. No wheezes, rales or rhonchi. HEART: Regular rate and rhythm without murmurs, rubs or gallops. S1 and S2 heard. EXTREMITIES: Normal range of motion, 2+ bilateral edema. No clubbing or cyanosis. Peripheral pulses intact. ASSESSMENT Shortness of breath COPD exacerbation Bilateral lower extremity swelling Elevated D dimer- CT negative PE and LE duplex negative for DVT Large hiatal hernia History of hypertension PLAN From cardiology standpoint no testing or intervention at this time. Echocardio gram revealed with no acute findings and normal ejection fraction. We will continue present medical therapy. We will follow the patient as needed. Please reach out with any further questions or concerns. Nurse Practitioner note has been reviewed, I agree with a documented findings and plan of care. Patient was seen and examined. Objective - Vital Signs Vital signs: Vital Signs Temp 97.9 F 09/10/21 07:00 Pulse 81 09/10/21 07:00 Resp 20 09/10/21 07:00 BP 149/76 09/10/21 07:00 Pulse Ox 93 L 09/10/21 07:00 Intake & Output 09/09/21 09/10/21 09/10/21 18:59 06:59 18:59 Intake Total 118 358 Balance 118 358 Weight 104.326 kg Intake: Oral 118 358 Other: # Voids 2 1 - Labs CBC & Chem 7: 09/10/21 05:33 09/10/21 05:33 Labs: Abnormal Lab Results - Last 24 Hours (Table) 09/10/21 09/10/21 Range/Units 05:33 05:33 WBC 13.50 H (4.50-10.00) X 10*3/uL RBC 3.53 L (4.10-5.20) X 10*6/uL Hgb 11.6 L (12.0-15.0) g/dL Hct 35.0 L (37.2-46.3) % MCV 99.2 H (80.0-97.0) fL MCH 32.9 H (27.0-32.0) pg MPV 8.5 L (9.5-12.2) fL Immature Gran # 0.10 H (0.00-0.04) X 10*3/uL Neutrophils # 12.36 H (1.80-7.70) X 10*3/uL Lymphocytes # 0.65 L (0.90-5.00) X 10*3/uL Eosinophils # 0 L (0.04-0.35) X 10*3/uL Sodium 132 L (135-145) mmol/L Chloride 95 L (96-109) mmol/L Creatinine 0.5 L (0.6-1.5) mg/dL BUN/Creatinine Ratio 50.20 H (12.00-20.00) Ratio Glucose 145 H (70-110) mg/dL
[2021-09-10] MEDS ORDERED: predniSONE 20 MG TAB PO SCH (10:45)
[2021-09-10] MEDS: NITROGLYCERIN OINT 1 INCH/GM PACKET TOPICAL SCH ×3 (12:21→19:13)
--- NOTE | 2021-09-10 12:49 | P.DS ---
Providers Date of admission: 09/09/21 13:50 Expected date of discharge: 09/10/21 Attending physician: Sejal Oneal Consults: 09/08/21 13:07 Consult Physician Routine Consulting Provider: Arron Sharma Consult Reason/Comments: dyspnea Do you want consulting provider notified?: Yes Primary care physician: Christopher Hurd [facility] Course: Final diagnosis Worsening shortness of breath likely due to COPD exacerbation. Bilateral lower extremity swelling Hyponatremia Elevated D-dimer level without evidence of central PE on CTA. LE duplex scan negative for DVT Cardiomegaly Large hiatal hernia Mild to moderate L1 compression fracture chronic in nature as per CT. History of multiple small gastric ulcers GERD Anxiety/depression Fibromyalgia Osteoarthritis GI and DVT prophylaxis Discharge disposition Patient is being discharged in a stable condition with guarded prognosis to [facility] as she is a resident there. Patient will follow-up with Dr. Hurd in the outpatient setting upon discharge. She will need to follow-up with cardiology outpatient. We'll be continuing with a prednisone taper on discharge. Total time taken is greater than 35 minutes. hospital course Patient is a 81-year-old female with a known history of COPD, fibromyalgia, osteoarthritis, hyperlipidemia, GERD, history of Nas multiple ulcers status post EGD and 2019 and anxiety/depression presents to ER with complaints of shortness of breath. Patient was also complaining of worsening bilateral leg swelling and was recently started on Lasix. Otherwise patient is a poor historian. Denied any chest pain. Does have cough with no sputum production. No nausea vomiting or abdominal pain or diarrhea. Denies any recent illnesses. Chest x-ray showed mild subsegmental atelectasis predominantly at the right lung base. Cardiomegaly. EKG showed normal sinus rhythm Laboratory showed WBC 10.4 hemoglobin 12.3 and platelets 320 D-dimer 1.[address] angiogram of the chest was done showed suboptimal study without central pulmonary embolism. Evidence of old granulomatous disease. No suspicious new acute process. Cardiomegaly redemonstrated. New large hiatal hernia or intrathoracic stomach with abnormal twisting from 2012 CT presumed chronic nasal however Mild to moderate compression type L1 fracture with slight posterior repulsion suspected chronic in age but new from 2013 study. 09/09/2021 Patient is currently sitting in the chair. Awake alert and agitated at times. Patient was given a dose of Haldol last night. No complaints of chest pain and breathing status is getting better. Leg swelling is also better and IV Lasix changed to by mouth. Patient was seen by cardiology. Patient is also being continued IV steroids and duo nebs due to COPD exacerbation. Breathing status is improving. Laboratory data showed WBC 7.6 hemoglobin 11.9 and platelets 299 Sodium 132 potassium 4.1 chloride 99 BUN 14 creatinine 0.43x3 negative. 09/10/2021 Patient has been seen and evaluated by cardiology and has been cleared for discharge and will follow-up outpatient setting. Patient denies any chest pain or shortness of breath at this time. Patient was on IV Lasix and has transitioned oral Lasix and will continue with 40 mg daily. Patient underwent 2-D echo showing LV systolic function is normal with an EF of 55-60% with some borderline concentric left ventricular hypertrophy, moderate mitral annular calcification present with mild tricuspid regurgitation present. A she to continue with current medication regimen. Patient also on some breathing inhalational treatments and recommend continue with DuoNeb's 4 times daily and as needed and will continue with the prednisone taper on discharge. Currently no reports of chest pain, shortness of breath, or palpitations. Patient is afebrile. No reports of nausea or vomiting and patient is tolerating diet. Patient will be going to [facility] today. PHYSICAL EXAMINATION: Patient is sitting up in the chair comfortably, no acute distress, awake alert and oriented.. HEENT: Normocephalic. Neck is supple. Pupils reactive. Nostrils clear. Oral cavity is moist. Neck reveals no JVD, carotid bruits, or thyromegaly. CHEST EXAMINATION: Trachea is central. Symmetrical expansion. Bilateral diminished air entry. Mild wheezing. CARDIAC: Normal S1, S2 with no gallops. No murmurs ABDOMEN: Soft. Bowel sounds normal. No organomegaly. No abdominal bruits. Extremities: 3+ edema. No clubbing or cyanosis Neurologically awake, alert, oriented x2-3 with well-coordinated movements. No focal deficits noted Skin: No rash or skin lesions. Psychiatric: Cooperative. Musculoskeletal: No joint swelling or deformity. Normal range of motion. Please refer to medication reconciliation sheet for a list of medications. Patient Condition at Discharge: Fair Plan - Discharge Summary New Discharge Prescriptions: New Aspirin 81 mg PO DAILY tab Ipratropium-Albuterol Nebulize [Duoneb 0.5 mg-3 mg/3 ml Soln] 3 ml INHALATION RT-QID ml Ipratropium-Albuterol Nebulize [Duoneb 0.5 mg-3 mg/3 ml Soln] 3 ml INHALATION RT-Q4H PRN ml PRN Reason: Shortness Of Breath Or Wheezing predniSONE 10 mg PO DIRECTED #30 tab Continue diphenhydrAMINE HCL [Benadryl] 25 mg PO DAILY PRN PRN Reason: Allergy Symptoms Multivit-Min/FA/Lycopen/Lutein [Centrum Silver Tablet] 1 tab PO DAILY amLODIPine [Norvasc] 10 mg PO DAILY Ferrous Sulfate [Iron] 325 mg PO DAILY Ativan Gel 1 mg TRANSDERM TID DULoxetine HCL [Cymbalta] 20 mg PO BID Acetaminophen Tab [Tylenol] 650 mg PO Q6H Omeprazole 20 mg PO DAILY Divalproex Sodium [Depakote Sprinkle] 125 mg PO BID Simethicone Chew [Mylicon Chew] 80 mg PO Q8H PRN PRN Reason: GAS/BLOATING Furosemide [Lasix] 40 mg PO DAILY Discharge Medication List Multivit-Min/FA/Lycopen/Lutein [Centrum Silver Tablet] 1 tab PO DAILY 08/22/19 [History] diphenhydrAMINE HCL [Benadryl] 25 mg PO DAILY PRN 08/22/19 [History] Acetaminophen Tab [Tylenol] 650 mg PO Q6H 08/30/21 [History] Ativan Gel 1 mg TRANSDERM TID 08/30/21 [History] DULoxetine HCL [Cymbalta] 20 mg PO BID 08/30/21 [History] Divalproex Sodium [Depakote Sprinkle] 125 mg PO BID 08/30/21 [History] Ferrous Sulfate [Iron] 325 mg PO DAILY 08/30/21 [History] Omeprazole 20 mg PO DAILY 08/30/21 [History] amLODIPine [Norvasc] 10 mg PO DAILY 08/30/21 [History] Furosemide [Lasix] 40 mg PO DAILY 09/08/21 [History] Simethicone Chew [Mylicon Chew] 80 mg PO Q8H PRN 09/08/21 [History] Aspirin 81 mg PO DAILY tab 09/10/21 [Rx] Ipratropium-Albuterol Nebulize [Duoneb 0.5 mg-3 mg/3 ml Soln] 3 ml INHALATION RT-Q4H PRN ml 09/10/21 [Rx] Ipratropium-Albuterol Nebulize [Duoneb 0.5 mg-3 mg/3 ml Soln] 3 ml INHALATION RT-QID ml 09/10/21 [Rx] predniSONE 10 mg PO DIRECTED #30 tab 09/10/21 [Rx] Follow up Appointment(s)/Referral(s): Christopher Hurd MD [Primary Care Provider] - 1-2 days Activity/Diet/Wound Care/Special Instructions: She is going to [facility]. Activity as tolerated Continue current diet heart healthy Patient is to complete a prednisone taper on discharge Continue with breathing inhalational treatments 4 times daily along with as needed Discharge Disposition: TRANSFER TO SNF/ECF
[2021-09-10 14:36] VITALS: BP 107/70; RESP 18; TEMP 97.7
[2021-09-10 19:33] VITALS: PULSE 90
== END 2021-09-10 20:32 | DRG 191 ==
LOC: EEVIPCON 11:14 → EC 11:14 → 1SOBS 13:07 → 6NMEDSUR 16:06 → OBSVTOIN 09-09 13:50
PROVIDERS: ADMIT Internal Medicine; ATTEND Internal Medicine
DX: J44.1 Chronic obstructive pulmonary disease with (acute) exacerbation (principal); E87.1 Hypo-osmolality and hyponatremia; J98.11 Atelectasis; M48.56XA Collapsed vertebra, not elsewhere classified, lumbar region, initial encounter for fracture; F32.A Depression, unspecified; F41.9 Anxiety disorder, unspecified; Z20.822 Contact with and (suspected) exposure to COVID-19; E78.5 Hyperlipidemia, unspecified; I11.0 Hypertensive heart disease with heart failure; R79.1 Abnormal coagulation profile; I50.9 Heart failure, unspecified; K21.9 Gastro-esophageal reflux disease without esophagitis; K44.9 Diaphragmatic hernia without obstruction or gangrene; M19.90 Unspecified osteoarthritis, unspecified site; M79.7 Fibromyalgia; Z87.11 Personal history of peptic ulcer disease; Z79.899 Other long term (current) drug therapy; Z82.49 Family history of ischemic heart disease and other diseases of the circulatory system; Z85.820 Personal history of malignant melanoma of skin; Z90.710 Acquired absence of both cervix and uterus; Z96.641 Presence of right artificial hip joint; Z90.49 Acquired absence of other specified parts of digestive tract; Z83.2 Family history of diseases of the blood and blood-forming organs and certain disorders involving the immune mechanism; Z88.1 Allergy status to other antibiotic agents; Z91.041 Radiographic dye allergy status; Z79.51 Long term (current) use of inhaled steroids; Z91.018 Allergy to other foods; Z88.8 Allergy status to other drugs, medicaments and biological substances
CPT/HCPCS: 36415; 71045; 71275; 80048; 80053; 83605; 83880; 84484; 85025; 85379; 85610; 85730; 87635; 93005; 93306; 93970; 94640; 96374; 99285

== ENCOUNTER → 2021-10-06 | Outpatient (CLI) | payer MEDICARE, OTHER ==
--- NOTE | 2021-10-06 12:44 | MR ---
EXAMINATION TYPE: MR brain wo con DATE OF EXAM: 10/06/2021 COMPARISON: Correlation CT 08/22/2019 and 08/30/2021 HISTORY: 81-year-old female Cerebral atrophy. TECHNIQUE: Multiplanar, multisequence images of the brain and brainstem were acquired without IV con trast. Diffusion weighted imaging is performed. The patient was unable to complete the exam. Only sag ittal T1, diffusion weighted, and axial T2 FS images could be obtained. FINDINGS: The technologist notes that the patient was unable to complete the exam. The patient was short of jose f ath, agitated, and pulling herself out of the skin. No evidence for acute infarction, hemorrhage, mass, mass effect, midline shift, herniation, effacemen t of basal cisterns, or extra-axial fluid collection. There is mild ventriculomegaly, Sergo's ratio 0.30. This is increased as compared to the patient's akil or 08/22/2019 CT. There is moderate generalized supratentorial volume loss. Encephalomalacia of the anterior right anaya etal lobe extending into the posterior right temporal lobe. T2 weighted sequence shows patchy and confluent white matter bright signal change in both cerebral he mispheres, also progressed from 2019. Extensive motion limiting assessment. Midline structures demonstrate normal morphology. The craniocervical junction is normal. IMPRESSION: 1. Patient could not complete the exam due to agitation and shortness of breath. She was pulling hers elf out of the machine. 2. DWI sequence shows no evidence for acute infarct. 3. 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 4. There is now moderate generalized atrophy, progressed from 2019. Mild ventriculomegaly is also new from 2019 and may reflect ex vacuo enlargement. Consider follow-up to ensure stability of ventricula r size and exclude NPH. 5. New patchy and confluent bright white matter change suggesting marked interval progression of button riveter kira small vessel ischemic disease.
== END | disposition home or self-care (01) ==
LOC: RADMRIMAIN 10:31
PROVIDERS: ATTEND Internal Medicine
DX: G93.89 Other specified disorders of brain (principal)
CPT/HCPCS: 70551